=== PATIENT | male | born 1950 | race Caucasian/White ===

== ENCOUNTER 2019-08-19 09:08 | Emergency (ER) | payer MEDICARE, OTHER ==
[~2019-08-19] VITALS: Ht 172.7 cm; Wt 79.4 kg
[~2019-08-19 09:08] MED LIST: AMITRIPTYLINE H25 MG PO; GLIPIZIDE5 MG PO; KOMBIGLYZE XR1 EAC2 PO; LISINOPRIL5 MG PO; METOPROLOL TART50 MG PO; PLAVIX75 MG PO; PREVACID30 MG PO; SIMVASTATIN20 MG PO
--- OUTSIDE RECORDS SUMMARY | 2019-08-19 09:12 | XMS REPORT | Summary of Care ---
Author Author [facility] - Health Organization [facility] - Health Address Unknown Phone Unavailable Care Team Providers Care Pillowcase Turner Name Role Phone Kori Parker Mancini PCP Reason for Visit * Reason Comments Error Encounter Details Care Team Description Date Type Department Danny Herrera MD [address] [place] [id number] Bradley Krishnamurthy, [facility] [address] [place] [address] ERRONEOUS ENCOUNTER--DISREGARD (Primary Dx) 07/22/2019 Telemedicine [facility] Health Visit Endocrinology, [address] [address] Allergies Comments Active Allergy Reactions Severity Noted Date Codeine Unknown - See 05/07/2018 comments hyperkalemia Lisinopril Other - See 05/07/2018 comments Tramadol Rash 05/07/2018 documented as of this encounter (statuses as of 07/22/2019) Medications End Date Status Medication Sig Dispensed Refills Start Date Active amLODIPine 10 mg tablet amlodipine 10 0 mg tablet Active cloniDINE 0.1 mg tablet clonidine HCl 0 0.1 mg tablet Active clopidogrel bisulfate, use as 0 bulk, 100 % Powd directed Active levothyroxine 50 mcg levothyroxine 0 tablet 50 mcg tablet Active metFORMIN 1,000 mg tablet take 1 tablet 0 (1,000 mg) by oral route 2 times per day with morning and evening meals Active metoprolol succinate XL 0 50 mg 24 hr tablet Active simvastatin 20 mg tablet take 1 tablet 0 (20 mg) by oral route once daily in the evening Active terazosin 2 mg capsule terazosin 2 0 mg capsule Active DULoxetine 30 mg Take 1 60 capsule 4 capsuleIndications: Type capsule by 9 2 diabetes mellitus with mouth 2 (two) diabetic polyneuropathy, times daily. with long-term current use of insulin Active liraglutide (VICTOZA inject 1.2 mg 6 Syringe 1 2-TAMMY) 0.6 mg/0.1 mL (18 under the 9 mg/3 mL) skin daily. injectionIndications: Dx: E11.20 Type 2 diabetes mellitus with diabetic nephropathy, with long-term current use of insulin Active Insulin Asp Prt-Insulin inject 25 2 Box 3 Aspart (NOVOLOG MIX Units under 9 70-30) 100 unit/mL the skin 2 (70-30) (two) times injectionIndications: daily. Type 2 diabetes mellitus with diabetic nephropathy, with long-term current use of insulin Active BD ULTRAFINE III MINI PEN Use to check 400 Each 1 31 gauge x 3/16" Ndle blood glucose 0 up to four times daily. E11.42 documented as of this encounter (statuses as of 07/22/2019) Active Problems Problem Noted Date Type 2 diabetes mellitus with diabetic polyneuropathy, with long-term 03/29/2019 current use of insulin Acquired hypothyroidism 06/18/2018 Mixed hyperlipidemia 06/18/2018 Essential hypertension 06/18/2018 documented as of this encounter (statuses as of 07/22/2019) Resolved Problems Problem Noted Date Resolved Date Type 2 diabetes mellitus with diabetic nephropathy 06/18/2018 06/18/2018 Type 2 diabetes mellitus with diabetic nephropathy, with long-term current 06/18/2018 03/29/2019 use of insulin Chronic pansinusitis 06/18/2018 03/29/2019 documented as of this encounter (statuses as of 07/22/2019) Social History Date Tobacco Use Types Packs/Day Years Used Never Smoker Smokeless Tobacco: Never Used Drinks/Week oz/Week Comments Alcohol Use Yes Sex Assigned at Date Recorded Not on file Industry Job Start Date Occupation Not on file Not on file Not on file Travel End Travel History Travel Start No recent travel history available. documented as of this encounter Last Filed Vital Signs Not on filedocumented in this encounter Progress Notes * Bradley Krishnamurthy FNP - 07/22/2019 11:00 AM CDT Cc: No chief complaint on file. HPI Patient didn't pick call, multiple attempts made, left VM on appointment [facility] eduled for today Allergies Robb is allergic to codeine; lisinopril; and tramadol. Medications Outpatient Medications Prior to Visit Medication Sig Dispense Refill BD ULTRAFINE III MINI PEN 31 gauge x 3/16" Ndle Use to check blood glucose u p to four times daily. E11.42 400 Each 1 DULoxetine 30 mg capsule Take 1 capsule by mouth 2 (two) times daily. 60 cap amador 4 Insulin Asp Prt-Insulin Aspart (NOVOLOG MIX 70-30) 100 unit/mL (70-30) injec tion inject 25 Units under the skin 2 (two) times daily. 2 Box 3 liraglutide (VICTOZA 2-TAMMY) 0.6 mg/0.1 mL (18 mg/3 mL) injection inject 1.2 mg under the skin daily. Dx: E11.20 6 Syringe 1 amLODIPine 10 mg tablet amlodipine 10 mg tablet cloniDINE 0.1 mg tablet clonidine HCl 0.1 mg tablet clopidogrel bisulfate, bulk, 100 % Powd use as directed levothyroxine 50 mcg tablet levothyroxine 50 mcg tablet metFORMIN 1,000 mg tablet take 1 tablet (1,000 mg) by oral route 2 times per day with morning and evening meals metoprolol succinate XL 50 mg 24 hr tablet simvastatin 20 mg tablet take 1 tablet (20 mg) by oral route once daily in t he evening terazosin 2 mg capsule terazosin 2 mg capsule No facility-administered medications prior to visit. Histories No past medical history on file. No past surgical history on file. Social History Socioeconomic History Marital status: Spouse name: Not on file Number of children: Not on file Years of education: Not on file Highest education level: Not on file Occupational History Not on file Social Needs Financial resource strain: Not on file Food insecurity: Worry: Not on file Inability: Not on file Transportation needs: Medical: Not on file Non-medical: Not on file Tobacco Use Smoking status: Never Smoker Smokeless tobacco: Never Used Substance and Sexual Activity Alcohol use: Yes Drug use: No Sexual activity: Not on file Lifestyle Physical activity: Days per week: Not on file Minutes per session: Not on file Stress: Not on file Relationships Social connections: Talks on phone: Not on file Gets together: Not on file Attends confucianism service: Not on file Active member of club or organization: Not on file Attends meetings of clubs or organizations: Not on file Relationship status: Not on file Intimate partner violence: Fear of current or ex partner: Not on file Emotionally abused: Not on file Physically abused: Not on file Forced sexual activity: Not on file Other Topics Concern Not on file Social History Narrative Not on file No family history on file. Review of Systems Vital Signs There were no vitals taken for this visit. Physical Exam Assessment/Plan documented in this encounter Plan of Treatment Health Maintenance Due Date Last Done Comments HEPATITIS C (HCV) SCREEN 1950 CREATININE (SERUM) 1961 EYE EXAM 1961 URINE MICROALBUMIN 1961 DTaP,Tdap,and Td Vaccines 1962 (1 - Tdap) FOOT EXAM 1969 COLONOSCOPY 2001 Zoster Recombinant 2001 Vaccine (SHINGRIX) (1 of 2) Medicare Wellness Visit 01/22/2016 PNEUMOCOCCAL VACCINES 65+ 01/22/2016 (1 of 2 - PCV13) INFLUENZA VACCINE (#1) 2018 HgA1C 09/16/2019 03/18/2019 LDL-C 03/18/2020 03/18/2019 documented as of this encounter Results Not on filedocumented in this encounter Visit Diagnoses Diagnosis ERRONEOUS ENCOUNTER--DISREGARD - Primary documented in this encounter
--- OUTSIDE RECORDS SUMMARY | 2019-08-19 09:12 | XMS REPORT ---
Author Author [facility] Address Unknown Phone Unavailable Care Team Providers Care Computing Consultant Name Role Phone Unavailable Unavailable Problems This patient has no known problems. Allergies, Adverse Reactions, Alerts This patient has no known allergies or adverse reactions. Medications This patient has no known medications.
[2019-08-19] MEDS ORDERED: HYDROCODONE/APAP 7.5MG-325MG 1 EA TAB PO PRN (09:30)
[2019-08-19] MEDS ORDERED: KETOROLAC TROMETHAMINE 60 MG/2 ML VIAL IM ONE (09:30)
--- NOTE | 2019-08-19 10:45 | Diagnostic Imaging Report ---
EXAMINATION: SHOULDER LEFT COMPLETE INDICATION: Trauma COMPARISON: None FINDINGS: Internal and external rotation images of the left shoulder demonstrate no acute fracture or dislocation. Alignment is anatomic. The soft tissues appear unremarkable. Mild degenerative changes of the glenohumeral and acromioclavicular joints. Postoperative findings of prior CABG. The visualized portions of the left lung are clear. IMPRESSION: No acute osseous injury of the left shoulder. Mild degenerative changes as above. Signed by: Julio Oswald MD on 08/19/2019 10:42 AM
--- NOTE | 2019-08-19 10:48 | Diagnostic Imaging Report ---
EXAMINATION: KNEE LEFT THREE VIEWS INDICATION: Trauma COMPARISON: None FINDINGS: No acute fracture or dislocation. Alignment is anatomic. Mild tricompartmental degenerative changes. No substantial joint effusion. Mild atherosclerotic arterial calcifications. Surgical clips project over the medial posterior knee soft tissues. IMPRESSION: No acute osseous injury. Mild tricompartmental degenerative changes. Signed by: Julio Oswald MD on 08/19/2019 10:45 AM
[2019-08-19] MEDS ORDERED: ULTRAM 50MG50 MG PO (11:36)
== END 2019-08-19 12:21 | disposition home or self-care (01) ==
LOC: ER 09:08
DX: M25.512 Pain in left shoulder (principal); M25.562 Pain in left knee; W18.30XA Fall on same level, unspecified, initial encounter; Y92.488 Other paved roadways as the place of occurrence of the external cause; I10 Essential (primary) hypertension; E11.9 Type 2 diabetes mellitus without complications; I25.10 Atherosclerotic heart disease of native coronary artery without angina pectoris; E78.5 Hyperlipidemia, unspecified; Z95.1 Presence of aortocoronary bypass graft
CPT/HCPCS: 73030; 73562; 99282; J1885

== ENCOUNTER → 2019-09-11 | Outpatient (CLI) | payer MEDICARE ==
[~2019-09-11] MED LIST changes: +IOPAMIDOL 370 MG/ML 200 ML INFUS..BTL INJ ONE; +SODIUM CHLORIDE 0.9% 500ML 500 ML ONE; +SODIUM CHLORIDE 0.9% 50ML 50 ML ONE; +ULTRAM 50MG50 MG PO
[2019-09-11 10:03] LABS: CREATININE, SERUM 1.61 mg/dL (0.72-1.25)
--- NOTE | 2019-09-11 11:57 | Diagnostic Imaging Report ---
CT of the chest. Comparison: None Clinical History: Abnormal chest x-ray Technique: Helical CT scan of the chest was performed from just above the thoracic inlet through the adrenal glands. Intravenous contrast administration was utilized. Coronal and sagittal reconstructions were generated from the raw data. Multiple images were submitted for interpretation. This exam was performed according to our departmental dose-optimization program which includes automated exposure control, adjustment of the mA and/or kV according to patient size Discussion: Lung lopez: Minimal interstitial and airspace type opacity involving the left upper lobe in a subsegmental fashion. There is also suggestion of subsegmental atelectasis involving the lingular lobe. This could be the residua of a resolving infection or inflammation. Central airways: Unremarkable Pleural spaces and pleura: Unremarkable Pulmonary digna: Normal Mediastinum: Status post median sternotomy and CABG. Cardiac chambers and pericardium: Unremarkable Systemic great vessels: Minimal atherosclerosis of aorta and its major branches. Central pulmonary vessels: Unremarkable Thyroid: Unremarkable Lymph nodes: No lymphadenopathy Azygos vein: Unremarkable The esophagus: Normal. Thoracic duct: Unremarkable Osseous structures: Unremarkable Upper abdomen: Status post cholecystectomy. Mild prominence of the common bile duct at 9 mm but considered within normal limits for this age group. The left kidney is not visualized. Clinical correlation is requested. Body wall: 15 mm right axillary lymph node with a low density center. Probably benign. Breasts: Unremarkable Axilla: Unremarkable Lower neck: Minimal atherosclerotic calcification of the left common carotid artery. Impression: Minimal interstitial and groundglass disease involving the left upper lobe could represent resolving inflammation/infection. Signed by: Jatinder Abbott MD on 09/11/2019 11:54 AM
== END ==
LOC: CT 09:08
PROVIDERS: ATTEND Family Medicine
DX: R93.89 Abnormal findings on diagnostic imaging of other specified body structures (principal)
CPT/HCPCS: 36415; 71260; 82565; 84520; 87635; 96360; J7040; Q9967

== ENCOUNTER 2019-10-01 18:48 | Observation (INO) | payer MEDICARE ==
[~2019-10-01] VITALS: Ht 170.2 cm; Wt 79.4 kg
[~2019-10-01 18:48] MED LIST changes: -IOPAMIDOL 370 MG/ML 200 ML INFUS..BTL INJ ONE; -SODIUM CHLORIDE 0.9% 500ML 500 ML ONE; -SODIUM CHLORIDE 0.9% 50ML 50 ML ONE
[2019-10-01] MEDS ORDERED: PANTOPRAZOLE 40 MG 10ML VIAL IV STA (18:55)
--- OUTSIDE RECORDS SUMMARY | 2019-10-01 18:55 | XMS REPORT | Continuity of Care Document ---
Author Author [facility] t Organization [facility] Address [address] [place] [address] Phone Unavailable Care Team Providers Care Separator Tender Name Role Phone Addis YAO Attphys Unavailable ADDIE LAINEZ Attphys Unavailable Michael Hopson Attphys Problems This patient has no known problems. Allergies, Adverse Reactions, Alerts This patient has no known allergies or adverse reactions. Medications This patient has no known medications. Procedures This patient has no known procedures. Encounters Start Date/Time End Date/Time Encounter Type Admission Type [facility] Care Department Encounter ID Source 2019-07-22 07:45:17 2019-07-22 15:00:48 Telemedicine Visit Bradley Krishnamurthy [facility] Office Building [id number] Results Test Description Test Time Test Comments Results Result Comments Source CT CHEST W 2019-09-11 11:45:00 [facility] [address] [place] [address] Patient Name: MARILY RENTERIA MR #: [id number] : 1950 Age/Sex: 69/M Req #: [id number] Adm Physician: Ordered by: ELSY YAO DO Report #: [id number] Location: CT Room/Bed: Procedure: [id number] CT/CT CHEST W Exam Date: 09/11/19 Exam Time: 1045 REPORT STATUS: Signed CT of the chest. Comparison: None Clinical History: Abnormal chest x-ray Technique: Helical CT scan of the chest was performed from just above the thoracic inlet through the adrenal glands. Intravenous contrast administration was utilized. Coronal and sa gittal reconstructions were generated from the raw data. Multiple images were submitted for interpretation. This exam was performed according to our departmental dose-optimization program which includes automated exposure control, adjustment of the mA and/or kV according to patient size Discussion: Lung lopez: Minimal interstitial and airspace type opacity involving the left upper lobe in a subsegmental fashion. There is also suggestion of subsegmental atelectasis involving the lingular lobe. This could be the residua of a resolving infection or inflammation. Central airways: Unremarkable Pleural spaces and pleura: Unremarkable Pulmonary digna: Normal Mediastinum: Status post median sternotomy and CABG. Cardiac chambers and pericardium: Unremarkable Systemic great vessels: Minimal atherosclerosis of aorta and its major branches. Central pulmonary vessels: Unremarkable Thyroid: Unremarkable Lymph nodes: No lymphadenopathy Azygos vein: Un remarkable The esophagus: Normal. Thoracic duct: Unremarkable Osseous structures: Unremarkable Upper abdomen: Status post cholecystectomy. Mild prominence of the common bile duct at 9 mm but considered within normal limits for this age group. The left kidney is not visualized. Clinical correlation is requested. Body wall: 15 mm right axillary lymph node with a low density center. Probably benign. Breasts: Unremarkable Axilla: Unremarkable Lower neck: Minimal atherosclerotic calcification of the left common carotid artery. Impression: Minimal interstitial and groundglass disease involving the left upper lobe could represent resolving inflammation/infection. Signed by: Mary Ann Crook MD on 09/11/2019 11:54 AM Dictated By: MARY ANN CROOK MD [id number] Transcribed By: EARLINE on 09/11/19 [id number] COPY TO: ELSY YAO DO KNEE LEFT THREE VIEWS 2019-08-19 10:44:00 [facility] [address] [address] Patient Name: MARILY RENTERIA MR #: [id number] : 1950 Age/Sex: 69/M Req #: [id number] Adm Physician: Ordered by: ADDIE LAINEZ DO Report #: [id number] Location: ER Room/Bed: Procedure: [id number] DX/KNEE LEFT THREE VIEWS Exam Date: 08/19/19 Exam Time: 1004 REPORT STATUS: Signed EXAMINATION: KNEE LEFT THREE VIEWS INDICATION: Trauma COMPARISON: None FINDINGS: No acute fracture or dislocation. Alignment is anatomic. Mild tricompartmental degenerative changes. No substantial joint effusion. Mild atherosclerotic arterial calcifications. Surgical clips project over the medial posterior knee soft tissues. IMPRESSION: No acute osseous injury. Mild tricompartmental degenerative changes. Signed by: Florian Quiroz MD on 08/19/2019 10:45 AM Dictated By: FLORIAN QUIROZ MD 1045 Transcribed By: EARLINE on 08/19/19 1045 COPY TO: ADDIE LAINEZ DO SHOULDER LEFT COMPLETE 2019-08-19 10:41:[address] [address] Patient Name: MARILY RENTERIA MR #: [id number] : 1950 Age/Sex: 69/M Req #: [id number] Adm Physician: Ordered by: ADDIE LAINEZ DO Report #: [id number] Location: ER Room/Bed: Procedure: [id number] DX/SHOULDER LEFT COMPLETE Exam Date: 08/19/19 Exam Time: 1004 REPORT STATUS: Signed EXAMINATION: SHOULDER LEFT COMPLETE INDICATION: Trauma COMPARISON: None FINDINGS: Internal and external rotation images of the left shoulder demonstrate no acute fracture or dislocation. Alignment is anatomic. The soft tissues appear unremarkable. Mild degenerative changes of the glenohumeral and acromioclavicular joints. Postoperative findings of prior CABG. The visualized portions of the left lung are clear. IMPRESSION: No acute osseous injury of the left shoulder. Mild degenerative changes as above. Signed by: Florian Quiroz MD on 08/19/2019 10:42 AM Dictated By: FLORIAN QUIROZ MD Electro nically Signed By: FLORIAN QUIROZ MD on 08/19/19 1042 Transcribed By: EARLINE on 08/19/191041 COPY TO: ADDIE LAINEZ DO
[2019-10-01] MEDS ORDERED: ASPIRIN 81 MG CHEW TAB PO ONE ×2 (19:00→20:00)
--- NOTE | 2019-10-01 19:06 | Emergency Department Note ---
History of Present Illnes History of Present Illness Chief Complaint: Chest Pain History of Present Illness This is a 69 year old male 3 day h/o of substernal CP non-radiating. ( +) SOB and N. Reports BRAUN. previous h/o of CABG and PCI . Historian: Patient Arrival Mode: Car Onset (how long ago): week(s) (3) Radiation: Reports non-radiation Severity: moderate Onset quality: gradual Duration (how long): day(s) (3) Timing of current episode: constant Progression: worsening Chronicity: new Relieving factors: none Exacerbating factors: none Associated symptoms: Reports chest pain, Reports nausea/vomiting, Reports shortness of breath Treatments prior to arrival: none Past Medical/Family History Physician Review I have reviewed the patient's past medical and family history. Any updates have been documented here. Past Medical History Recent Fever: No Clinical Suspicion of Infectio: No New/Unexplained Change in Ment: No Past Medical History: Hypertension, Diabetes, CAD, Hyperlipedemia Past Surgical History: CABG Other Surgery: left knee meniscus Social History Smoking Cessation: Never Smoker Alcohol Use: None Any Illegal Drug Use: No Review of Systems Review of Systems Constitutional: Reports no symptoms EENTM: Reports no symptoms Cardiovascular: Reports chest pain, Reports edema Respiratory: Reports dyspnea Gastrointestinal: Reports nausea Genitourinary: Reports no symptoms Musculoskeletal: Reports no symptoms Integumentary: Reports no symptoms Neurological: Reports no symptoms Psychological: Reports no symptoms Endocrine: Reports no symptoms Hematological/Lymphatic: Reports no symptoms Review of other systems All other systems reviewed and negative. Physical Exam Related Data Allergies: Coded Allergies: codeine (Verified Allergy, Unknown, 11/14/12) Triage Vital Signs Vital Signs Date Time Temp Pulse Resp B/P (MAP) Pulse Ox O2 Delivery O2 Flow Rate FiO2 10/01/19 18:51 98.4 91 18 189/99 98 Vital signs reviewed: Yes Physical Exam CONSTITUTIONAL Constitutional: Reports well-developed, Reports well-nourished HENT HENT: Reports normocephalic, Reports atraumatic, Reports oropharynx clear/moist, Reports nose normal HENT L/R: Reports left ext ear normal, Reports right ext ear normal EYES Eyes: Reports PERRL, Reports conjunctivae normal NECK Neck: Reports ROM normal PULMONARY Pulmonary: Reports effort normal, Reports breath sounds normal CARDIOVASCULAR Cardiovascular: Reports regular rhythm, Reports heart sounds normal, Reports capillary refill normal, Reports normal rate GASTROINTESTINAL Abdominal: Reports soft, Reports nontender, Reports bowel sounds normal GENITOURINARY Genitourinary: Reports exam deferred SKIN Skin: Reports warm, Reports dry MUSCULOSKELETAL Musculoskeletal: Reports edema (1+ pedal b/l ) NEUROLOGICAL Neurological: Reports alert, Reports oriented x 3, Reports no gross motor or sensory deficits PSYCHOLOGICAL Psychological: Reports mood/affect normal, Reports judgement normal Results Laboratory Laboratory Laboratory Tests Test 10/01/19 18:56 Lab results reviewed: Yes Laboratory comments Laboratory Tests Test 10/01/19 18:56 White Blood Count 4.37 x10e3/uL (4.8-10.8) Red Blood Count 4.14 x10e6/uL (4.3-5.7) Hemoglobin 13.0 g/dL (14.0-18.0) Hematocrit 38.0 % (38.2-49.6) Mean Corpuscular Volume 91.8 fL (81-99) Mean Corpuscular Hemoglobin 31.4 pg (28-32) Mean Corpuscular Hemoglobin Concent 34.2 g/dL (31-35) Red Cell Distribution Width 12.4 % (11.7-14.4) Platelet Count 146 x10e3/uL (140-360) Neutrophils (%) (Auto) 46.3 % (38.7-80.0) Lymphocytes (%) (Auto) 36.6 % (18.0-39.1) Monocytes (%) (Auto) 11.9 % (4.4-11.3) Eosinophils (%) (Auto) 4.1 % (0.0-6.0) Basophils (%) (Auto) 0.9 % (0.0-1.0) Neutrophils # (Auto) 2.0 (2.1-6.9) Lymphocytes # (Auto) 1.6 (1.0-3.2) Monocytes # (Auto) 0.5 (0.2-0.8) Eosinophils # (Auto) 0.2 (0.0-0.4) Basophils # (Auto) 0.0 (0.0-0.1) Absolute Immature Granulocyte (auto 0.01 x10e3/uL (0-0.1) Prothrombin Time 12.5 seconds (11.9-14.5) Prothromb Time International Ratio 0.88 Activated Partial Thromboplast Time 29.7 seconds (23.8-35.5) Sodium Level 139 mmol/L (136-145) Potassium Level 5.3 mmol/L (3.5-5.1) Chloride Level 105 mmol/L (98-107) Carbon Dioxide Level 22 mmol/L (22-29) Anion Gap 17.3 mmol/L (8-16) Blood Urea Nitrogen 26 mg/dL (7-26) Creatinine 1.88 mg/dL (0.72-1.25) Estimat Glomerular Filtration Rate 36 ML/MIN (60-) BUN/Creatinine Ratio 14 (6-25) Glucose Level 181 mg/dL (74-118) Calcium Level 9.1 mg/dL (8.4-10.2) Total Bilirubin 0.5 mg/dL (0.2-1.2) Aspartate Amino Transf (AST/SGOT) 169 IU/L (5-34) Alanine Aminotransferase (ALT/SGPT) 125 IU/L (0-55) Alkaline Phosphatase 92 IU/L (40-150) Creatine Kinase 132 IU/L (30-200) Creatine Kinase MB 9.50 ng/mL (0-5.0) Troponin I 0.027 ng/mL (0-0.300) B-Type Natriuretic Peptide 47.0 pg/mL (0-100) Total Protein 7.4 g/dL (6.5-8.1) Albumin 3.0 g/dL (3.5-5.0) Globulin 4.4 g/dL (2.3-3.5) Albumin/Globulin Ratio 0.7 (0.8-2.0) Lipase 39 U/L (8-78) Imaging Imaging results reviewed: Yes Impressions [place] [address] Patient Name: MARILY RENTERIA MR #: [id number] : 1950 Age/Sex: 69/M Req #: [id number] Adm Physician: Ordered by: SURINDER QUIROS MD Report #: [id number] Location: ER Room/Bed: Procedure: [id number] DX/CHEST SINGLE (PORTABLE) Exam Date: Exam Time: REPORT STATUS: Signed EXAMINATION: CHEST SINGLE (PORTABLE) INDICATION: ^CP COMPARISON: CT chest 09/11/2019 FINDINGS: AP view TUBES and LINES: None. LUNGS: Lungs are well inflated. Mild central pulmonary vascular congestion. Scarring in the lingula is unchanged. PLEURA: No pleural effusion or pneumothorax. HEART AND MEDIASTINUM: Mild enlargement of the cardiac silhouette. BONES AND SOFT TISSUES: Intact median sternotomy wires. Soft tissues are unremarkable. UPPER ABDOMEN: No free air under the diaphragm. IMPRESSION: Mild central pulmonary vascular congestion. Signed by: Dr. Valentino Trevizo M.D. on 10/01/2019 8:17 PM Dictated By: VALENTINO TREVIZO MD 16 Transcribed By: EARLINE on 10/01/192016 COPY TO: SURINDER QUIROS MD~ Procedures 12 Lead ECG Interpretation ECG Interpretation : ECG: ECG 1 Sports Centre Manager: Interpreted by ED physician Date: Oct 01, 2019 Prior ECG tracings: reviewed Rhythm: sinus rhythm Ectopy: unifocal PVC's Rate: normal QRS axis: normal ST segments normal: Yes T waves normal: Yes Assessment & Plan Medical Decision Making MDM Patient with prior h/o of CAD. labs and XR reviewed. Patient with elevated Creatinine and liver enyzmes. Case d/w with Dr Desiree Ritter with orders to give lovenox SC. Plan to admit to the hospital. Reassessment Reassessment time: 20:[address] Ankit Ritter paged. Patient to be admitted Assessment & Plan Final Impression: (1) Chest pain (2) Renal insufficiency (3) Hyperkalemia (4) Transaminitis Depart Disposition: ADMITTED Last Vital Signs Date Time Temp Pulse Resp B/P (MAP) Pulse Ox O2 Delivery O2 Flow Rate FiO2 10/01/19 18:51 98.4 91 18 189/99 98 Home Meds Active Scripts Tramadol Hcl* (ULTRAM 50MG*) 50 Mg Tab, 50 MG PO Q6HR PRN for Mild Pain (1-3) or Fever>100.8, #14 TAB Prov:ADDIE LAINEZ DO 08/19/19 Reported Medications Insuln Asp Prt/Insulin Aspart (NOVOLOG MIX 70-30 FLEXPEN SYRN) 100 Unit/1 Ml Insuln.pen, 25 UNIT SC BID, SYR 10/02/19 Atorvastatin Calcium (ATORVASTATIN CALCIUM) 20 Mg Tablet, 20 MG PO DAILY, #30 TAB 10/02/19 Zolpidem Tartrate (ZOLPIDEM TARTRATE) 5 Mg Tablet, 5 MG PO HS PRN for INSOMNIA, #30 TAB 10/02/19 Clonidine Hcl (CLONIDINE HCL) 0.1 Mg Tablet, 1 TAB PO HS, #60 TAB 10/02/19 Terazosin Hcl (TERAZOSIN HCL) 1 Mg Capsule, 2 MG PO HS, #30 CAP 10/02/19 Metoprolol Succinate (METOPROLOL SUCCINATE) 50 Mg Tab.er.24h, 50 MG PO DAILY, MG 10/02/19 Amlodipine Besylate (AMLODIPINE BESYLATE) 10 Mg Tablet, 10 MG PO DAILY, #30 TAB 10/02/19 Liraglutide (VICTOZA 2-TAMMY) 0.6 Mg/0.1 Ml Pen.injctr, 1.2 MG DAILY 10/02/19 Levothyroxine Sodium (LEVOTHYROXINE SODIUM) 50 Mcg Tablet, 100 MCG PO DAILY, #30 TAB 10/02/19 Metformin Hcl (METFORMIN HCL ER) 500 Mg Tab.er.24, 500 MG PO BID, #60 TAB 10/02/19 Amitriptyline Hcl (AMITRIPTYLINE HCL) 25 Mg Tablet, 25 MG PO HS, #30 TAB 10/02/19 Omeprazole (OMEPRAZOLE) 40 Mg Capsule.dr, 20 MG PO DAILY 10/02/19 Amitriptyline Hcl (AMITRIPTYLINE HCL) 25 Mg Tablet, MG PO DAILY 11/14/12 Saxagliptin Hcl/Metformin Hcl (KOMBIGLYZE XR 2.5-1,000 MG TAB) 1 Each Tbmp.24hr, MG PO DAILY 11/14/12 Lisinopril (LISINOPRIL) 5 Mg Tablet, MG PO DAILY 11/14/12 Simvastatin (SIMVASTATIN) 20 Mg Tablet, MG PO DAILY 11/14/12 Lansoprazole (PREVACID) 30 Mg Capsule.dr, MG PO DAILY 11/14/12 Clopidogrel Bisulfate* (PLAVIX) 75 Mg Tablet, 75 MG PO DAILY 11/14/12 Glipizide (GLIPIZIDE) 5 Mg Tablet, MG PO DAILY 11/14/12 Metoprolol Tartrate (METOPROLOL TARTRATE) 50 Mg Tablet, MG PO BID 11/14/12 Medications in the ED Pantoprazole Sodium 40 mg ONCE STAT IV ; Start 10/01/19 at 18:55; Stop 10/01/19 at 19:03; Status DC Aspirin 81 mg NOW ONCE PO ; Start 10/01/19 at 19:00; Stop 10/01/19 at 19:02; Status DC CHANDRAKANT BRUNO DO Oct 01, 2019 19:06
[2019-10-01 19:08] LABS: BASOPHILS % 0.9 % (0.0-1.0); EOSINOPHILS # (AUTO) 0.2 (0.0-0.4); EOSINOPHILS % 4.1 % (0.0-6.0); LYMPHOCYTES # (AUTO) 1.6 (1.0-3.2); LYMPHOCYTES % 36.6 % (18.0-39.1); MEAN CORPUSCULAR HEMOGLOBIN 31.4 pg (28-32); MEAN CORPUSCULAR HGB CONC 34.2 g/dL (31-35); MEAN CORPUSCULAR VOLUME 91.8 fL (81-99); MONOCYTES # (AUTO) 0.5 (0.2-0.8); MONOCYTES % 11.9 % (4.4-11.3); NEUTROPHILS % 46.3 % (38.7-80.0); PLATELET COUNT 146 x10e3/uL (140-360); RED BLOOD COUNT 4.14 x10e6/uL (4.3-5.7); RED CELL DISTRIBUTION WIDTH 12.4 % (11.7-14.4)
[2019-10-01 19:27] LABS: INR 0.88; PROTHROMBIN TIME 12.5 seconds (11.9-14.5)
[2019-10-01 19:28] LABS: PARTIAL THROMBOPLASTIN TIME 29.7 seconds (23.8-35.5)
[2019-10-01 19:37] LABS: ALBUMIN/GLOBULIN RATIO 0.7 (0.8-2.0); ANION GAP 17.3 mmol/L (8-16); CALCIUM 9.1 mg/dL (8.4-10.2); CREATININE, SERUM 1.88 mg/dL (0.72-1.25); POTASSIUM 5.3 mmol/L (3.5-5.1)
[2019-10-01 19:44] LABS: CREATINE KINASE MB 9.5 ng/mL (0-5.0)
[2019-10-01] MEDS ORDERED: MORPHINE SULFATE INJ 4 MG/ML INJ 1ML IV STA ×2 (19:56→20:06)
[2019-10-01] MEDS ORDERED: ONDANSETRON HCL INJ 2MG/ML 2ML 2 MG/ML VIAL IV PRN (20:00)
[2019-10-01] MEDS ORDERED: SODIUM CHLORIDE FLUSH 10 ML SYR INJ PRN (20:00)
[2019-10-01] MEDS ORDERED: DEXTROSE 50% SYRINGE 50 ML IV PRN (20:00)
[2019-10-01] MEDS ORDERED: HYDRALAZINE HCL 20 MG/ML VIAL IV STA (20:08)
[2019-10-01] MEDS ORDERED: HYDRALAZINE HCL 20 MG/ML VIAL IV PRN (20:15)
--- NOTE | 2019-10-01 20:21 | Diagnostic Imaging Report ---
EXAMINATION: CHEST SINGLE (PORTABLE) INDICATION: ^CP COMPARISON: CT chest 09/11/2019 FINDINGS: AP view TUBES and LINES: None. LUNGS: Lungs are well inflated. Mild central pulmonary vascular congestion. Scarring in the lingula is unchanged. PLEURA: No pleural effusion or pneumothorax. HEART AND MEDIASTINUM: Mild enlargement of the cardiac silhouette. BONES AND SOFT TISSUES: Intact median sternotomy wires. Soft tissues are unremarkable. UPPER ABDOMEN: No free air under the diaphragm. IMPRESSION: Mild central pulmonary vascular congestion. Signed by: Dr. Asuncion Muro M.D. on 10/01/2019 8:17 PM
[2019-10-01] MEDS ORDERED: METOPROLOL TARTRATE INJ 1 MG/ML VIAL IV ONE (21:00)
--- OUTSIDE RECORDS SUMMARY | 2019-10-01 21:03 | XMS REPORT | Continuity of Care Document ---
Author Author [facility] t Organization [facility] Address [address] [place] [address] Phone Unavailable Care Team Providers Care [employer] Assembler Name Role Phone CHANDRAKANT BRUNO Attphys Unavailable Addis YAO Attphys Unavailable ADDIE LAINEZ Attphys Unavailable Michael Hopson Attphys Irene CAR Admphys Unavailable Problems This patient has no known problems. Allergies, Adverse Reactions, Alerts This patient has no known allergies or adverse reactions. Medications This patient has no known medications. Procedures This patient has no known procedures. Encounters Start Date/Time End Date/Time Encounter Type [facility] Encounter ID Source 2019-07-22 07:45:17 2019-07-22 15:00:48 Telemedicine Visit Bradley Krishnamurthy [facility] Office Building [id number] Results Test Description Test Time Test Comments Results Result Comments Source CHEST SINGLE (PORTABLE) 2019-10-01 20:16:00 [facility] [address] [place], [place] [address] Patient Name: MARILY RENTERIA MR #: [id number] : 1950 Age/Sex: 69/M Req #: [id number] Adm Physician: Ordered by: SURINDER QUIROS MD Report #: [id number] Location: ER Room/Bed: Procedure: DX/CHEST SINGLE (PORTABLE) Exam Date: Exam Time: REPORT STATUS: Signed EXAMINATION: CHEST SINGLE (PORTABLE) INDICATION: CP COMPARISON: CT chest 09/11/2019 FINDINGS: AP view TUBES and LINES: None. LUNGS: Lungs are well inflated. Mild central pulmonary vascular congestion. Scarring in the lingula is unchanged. PLEURA: No pleural effusion or pneumothorax. HEART AND MEDIASTINUM: Mild enlargement of the cardiac silhouette. BONES AND SOFT TISSUES: Intact median sternotomy wires. Soft tissues are unremarkable. UPPER ABDOMEN: No free air under the diaphragm. IMPRESSION: Mild central pulmonary vascular congestion. Signed by: Dr. Valentino Trevizo M.D. on 10/01/2019 8:17 PM Dictated By: VALENTINO TREVIZO MD 16 Transcribed By: EARLINE on 10/01/192016 COPY TO: SURINDER QUIROS MD CT CHEST W 2019-09-11 11:45:00 [place] [address] Patient Name: MARILY RENTERIA MR #: [id number] : 1950 Age/Sex: 69/M Req #: [id number] Adm Physician: Ordered by: ELSY YAO DO Report #: [id number] Location: CT Room/Bed: Procedure: CT/CT CHEST W Exam Date: 09/11/19 Exam [...] AM Dictated By: MARY ANN CROOK MD 1154 Transcribed By: EARLINE on 09/11/19 1154 COPY TO: ELSY YAO LEFT THREE VIEWS 2019-08-19 10:44:00 [place] [address] Patient Name: MARILY RENTERIA MR #: [id number] : 1950 Age/Sex: 69/M Req #: [id number] Adm Physician: Ordered by: ADDIE LAINEZ DO Report #: [id number] Location: ER Room/Bed: Procedure: [id number] DX/KNEE LEFT THREE VIEWS Exam Date: 08/19/19 [...] Mild tricompartmental degenerative changes. Signed by: Florian Oswald MD on 08/19/2019 10:45 AM Dictated By: FLORIAN OSWALD MD 1045 Transcribed By: EARLINE on 08/19/19 1045 COPY TO: ADDIE LAINEZ DO SHOULDER LEFT COMPLETE 2019-08-19 10:41:00 [place] [address] Patient Name: MARILY RENTERIA MR #: [id number] : 1950 Age/Sex: 69/M Req #: [id number] Adm Physician: Ordered by: ADDIE LAINEZ DO Report #: [id number] Location: ER Room/Bed: Procedure: [id number] DX/SHOULDER LEFT COMPLETE Exam Date: 08/19/19 Exam [...] degenerative changes as above. Signed by: Florian Oswald MD on 08/19/2019 10:42 AM Dictated By: FLORIAN OSWALD MD Electro nically Signed By: FLORIAN OSWALD MD on 08/19/19 1042 Transcribed By: EARLINE on 08/19/19 104 COPY TO: ADDIE LAINEZ DO
[2019-10-01] MEDS: ENOXAPARIN INJ 80 MG/0.8 ML SYR SC SCH (21:24)
[2019-10-01] MEDS ORDERED: NITROGLYCERIN 2% OINT 1 GM PKT TOP STA (21:53)
[2019-10-02] VITALS (10 sets, daily range): BP systolic 139–162; BP diastolic 71–94
--- NOTE | 2019-10-02 01:05 | NUR ---
PATIENT ARRIVED TO THE UNIT VIA STRETCHER FROM ER WITH BELONGINGS. RECEIVED REPORT FROM RUBEN ER NURSE. PATIENT IS A&OX3 AND AMBULATES. PATIENT IN NO PAIN OR DISTRESS. CALL LIGHT WITHIN REACH.
[2019-10-02] MEDS: INSULIN REGULAR, HUMAN 100 UNIT/1 ML 3ML VIAL SQ SCH ×5 (01:21→21:42)
[2019-10-02 02:53] LABS: CREATINE KINASE MB 8.8 ng/mL (0-5.0)
[2019-10-02] MEDS ORDERED: METOPROLOL SUCC50 MG PO (03:43)
[2019-10-02] MEDS ORDERED: METFORMIN HCL500 M2 PO (03:43)
[2019-10-02] MEDS ORDERED: AMLODIPINE BESY10 MG PO (03:43)
[2019-10-02] MEDS ORDERED: LEVOTHYROXINE50 MCG PO (03:43)
[2019-10-02] MEDS ORDERED: NOVOLOG MI100 UNIT/1 SC (03:43)
[2019-10-02] MEDS ORDERED: ZOLPIDEM TARTRAT5 MG PO (03:43)
[2019-10-02] MEDS ORDERED: TERAZOSIN HCL1 MG PO (03:43)
[2019-10-02] MEDS ORDERED: ATORVASTATIN CA20 MG PO (03:43)
[2019-10-02] MEDS ORDERED: VICTOZA 2-0.6 MG/0.1 (03:43)
[2019-10-02] MEDS ORDERED: OMEPRAZOLE40 MG PO (03:43)
[2019-10-02] MEDS ORDERED: AMITRIPTYLINE H25 MG PO (03:43)
[2019-10-02] MEDS ORDERED: CLONIDINE HCL0.1 MG PO (03:43)
[2019-10-02] MEDS: MORPHINE SULFATE INJ 4 MG/ML INJ 1ML IV PRN ×3 (04:45→18:10)
[2019-10-02 05:52] LABS: BASOPHILS % 0.8 % (0.0-1.0); EOSINOPHILS # (AUTO) 0.1 (0.0-0.4); EOSINOPHILS % 3.7 % (0.0-6.0); HEMATOCRIT 34.2 % (38.2-49.6); HEMOGLOBIN 11.8 g/dL (14.0-18.0); LYMPHOCYTES # (AUTO) 1.3 (1.0-3.2); MEAN CORPUSCULAR HGB CONC 34.5 g/dL (31-35); MEAN CORPUSCULAR VOLUME 92.7 fL (81-99); MONOCYTES # (AUTO) 0.5 (0.2-0.8); MONOCYTES % 12.5 % (4.4-11.3); NEUTROPHILS # (AUTO) 1.8 (2.1-6.9); NEUTROPHILS % 47.5 % (38.7-80.0); PLATELET COUNT 115 x10e3/uL (140-360); RED BLOOD COUNT 3.69 x10e6/uL (4.3-5.7); RED CELL DISTRIBUTION WIDTH 12.4 % (11.7-14.4)
[2019-10-02 06:32] LABS: ALBUMIN 2.6 g/dL (3.5-5.0); ALBUMIN/GLOBULIN RATIO 0.7 (0.8-2.0); ANION GAP 14.1 mmol/L (8-16); CALCIUM 8.5 mg/dL (8.4-10.2); CREATININE, SERUM 1.58 mg/dL (0.72-1.25); POTASSIUM 4.1 mmol/L (3.5-5.1)
--- NOTE | 2019-10-02 07:03 | NUR ---
GAVE BEDSIDE SHIFT REPORT TO ONCOMING NURSE. CALL LIGHT WITHIN REACH. PATIENT IN BED. HOURLY ROUNDING PERFORMED.
[2019-10-02 07:04] LABS: CREATINE KINASE MB 3.7 ng/mL (0-5.0)
[2019-10-02] MEDS: ENOXAPARIN INJ 80 MG/0.8 ML SYR SC SCH ×2 (08:44→21:41)
--- NOTE | 2019-10-02 13:54 | Consultation ---
DATE OF CONSULTATION: Cardiology Consultation Mr. Virgen is a pleasant 69-year-old diabetic, known to us from past evaluations. CHIEF COMPLAINT: He presented to the emergency room overnight with a complaint of chest discomfort. HISTORY OF PRESENT ILLNESS: The patient is a vague historian and reports that he "has chest pain all the time." He does not relate it to exertion. He has been painting his house lately. He has nitroglycerin, but does not use it, reporting it is years old. PAST MEDICAL HISTORY: Complex with previous coronary artery bypass graft surgery in 2008, after previous coronary stenting and brachytherapy. Longstanding diabetes and mild renal insufficiency. MEDICATIONS: Recent medications have been glipizide 10 mg two tablets daily, simvastatin 20 mg daily, aspirin 325 mg daily, metformin 500 mg two tablets twice a day, amlodipine 10 mg daily, Victoza, clonidine 0.1 mg daily, levothyroxine 0.5 mg daily, amitriptyline, losartan was stopped. PERSONAL AND SOCIAL HISTORY: He does not smoke. FAMILY HISTORY: Father diabetic. Mother had congestive failure. Brother had myocardial infarction. PAST SURGICAL HISTORY: The patient had left knee surgery in 2017, remote appendectomy. PHYSICAL EXAMINATION: GENERAL: At this time shows a pleasant, alert man, who is alert and oriented. VITAL SIGNS: Blood pressure 150/80. HEAD, EYES, EARS, NOSE, AND THROAT: Unremarkable. NECK: There is healed right carotid incision. There are no bruits. THORAX: There is healed midline sternotomy. Heart sounds S1 and S2 are equal. No murmurs. LUNGS: Clear. ABDOMEN: Protuberant. Normal bowel sounds. EXTREMITIES: Show trace edema on the left leg. LABORATORY DATA: His initial creatinine is 1.88 with repeat being 1.58. Troponins are normal x3. EKG does not show any acute changes. ASSESSMENT: 1. Atypical chest discomfort, etiology not clear. 2. Known coronary artery disease with previous bypass graft surgery. 3. History of carotid disease and carotid endarterectomy. 4. Type 2 adult onset diabetes. PLAN: We will monitor. Review echo and carotid Doppler scan, and plan stress Cardiolite for him to reassess his chest discomforts. Further management based on clinical course. Thank you for asking me to see him in consultation. Ankit Ritter, MD JM/ZAHRA /[id number] cc: Parker Sheikh DO
[2019-10-02] MEDS: METFORMIN HCL 500 MG TAB CR PO SCH (17:07)
--- NOTE | 2019-10-02 19:03 | NUR ---
RECEIVED REPORT FROM PREVIOUS NURSE. CALL LIGHT WITHIN REACH. PATIENT IN BED ASLEEP
[2019-10-02] MEDS ORDERED: CLONIDINE HCL 0.1 MG TAB PO SCH (21:00)
[2019-10-02] MEDS ORDERED: ZOLPIDEM TARTRATE 5 MG TAB PO PRN (21:00)
[2019-10-02] MEDS ORDERED: TERAZOSIN HCL 1 MG CAP PO SCH (21:00)
[2019-10-02] MEDS ORDERED: AMITRIPTYLINE HCL 25 MG TAB PO SCH (21:00)
[2019-10-03] VITALS: BP 138/77
[2019-10-03 04:00] VITALS: BP 140/75
[2019-10-03] MEDS ORDERED: LEVOTHYROXINE SODIUM 100 MCG TAB PO SCH (06:00)
--- NOTE | 2019-10-03 07:13 | NUR ---
GAVE BEDSIDE SHIFT REPORT TO ONCOMING NURSE. CALL LIGHT WITHIN REACH. PATIENT IN BED. HOURLY ROUNDING PERFORMED.
[2019-10-03] MEDS ORDERED: PANTOPRAZOLE SOD 40 MG TABEC PO SCH ×2 (07:30→09:00)
[2019-10-03] MEDS: INSULIN REGULAR, HUMAN 100 UNIT/1 ML 3ML VIAL SQ SCH ×3 (07:30→17:35)
[2019-10-03 07:47] VITALS: BP 162/82
[2019-10-03] MEDS ORDERED: AMLODIPINE BESYLATE 10 MG TAB PO SCH (09:00)
[2019-10-03] MEDS ORDERED: METOPROLOL SUCCINATE 50 MG TAB XL PO SCH (09:00)
[2019-10-03] MEDS ORDERED: ATORVASTATIN 20 MG TAB PO SCH (09:00)
[2019-10-03] MEDS ORDERED: LEVOTHYROXINE SODIUM 50 MCG TAB PO SCH (09:00)
[2019-10-03] MEDS ORDERED: CLOPIDOGREL BISULFATE 75 MG TAB PO SCH (09:00)
--- NOTE | 2019-10-03 09:20 | NUR ---
Pt taken to nuclear medicine department for stress test at this time. Pt is aox3 and able to verbalize needs. Denies any pain at this time. 0 s/s of acute distress noted at time of transfer.
[2019-10-03 09:27] VITALS: BP 162/82
[2019-10-03] MEDS: METFORMIN HCL 500 MG TAB CR PO SCH ×2 (12:28→17:33)
[2019-10-03] MEDS: ENOXAPARIN INJ 80 MG/0.8 ML SYR SC SCH (12:29)
[2019-10-03 13:11] VITALS: BP 174/85
[2019-10-03 16:07] VITALS: BP 152/85
--- NOTE | 2019-10-03 17:56 | NUR ---
Pt discharged home at this time. He was cleared by Dr. Ritter after stress test results. Pt and family verbalized understanding of all discharge instructions. Denies any pain at time of discharge.
--- NOTE | 2019-10-03 21:45 | Operative Report ---
DATE OF PROCEDURE: 10/03/2019 SURGEON: Ankit Ritter MD STUDY: Stress Myoview. FINDINGS: The patient had resting perfusion images after injection of 11 mCi of technetium-99m Myoview. Later, the patient exercised on Scott protocol for a total of 5 minutes [address] changes. He reports that he did have "a little chest discomfort in stage II, predominantly shortness of breath." At maximum exercise, he was given 33 mCi of technetium-99m Myoview. Perfusion images were taken by rotational tomographies. Comparison of resting and Lexiscan stress images show no evidence of any perfusion defect. Additionally, gated wall motion images were obtained. The calculated ejection fraction normal 63% without regional wall motion abnormalities. FINAL IMPRESSION: 1. Normal stress Myoview for perfusion. 2. Normal left ventricular function with calculated ejection fraction 63%. MD JAMEY Cagle/GUZMANL /[id number] cc: Parker Sheikh DO
== END 2019-10-03 17:56 | disposition home or self-care (01) ==
LOC: ER 18:52 → ERHOLD 19:56 → MED/SURG 10-02 01:04
DX: R07.9 Chest pain, unspecified (principal); I25.10 Atherosclerotic heart disease of native coronary artery without angina pectoris; Z95.1 Presence of aortocoronary bypass graft; Z95.5 Presence of coronary angioplasty implant and graft; E11.22 Type 2 diabetes mellitus with diabetic chronic kidney disease; I12.9 Hypertensive chronic kidney disease with stage 1 through stage 4 chronic kidney disease, or unspecified chronic kidney disease; N18.9 Chronic kidney disease, unspecified; R74.0 Nonspecific elevation of levels of transaminase and lactic acid dehydrogenase [LDH]; E87.5 Hyperkalemia
CPT/HCPCS: 36415 ×3; 71045; 78452; 80053 ×2; 82550 ×2; 82553 ×2; 82948 ×2; 83690; 83880; 84484 ×2; 85025 ×2; 85610; 85730; 87635; 93005; 93017; 93306; 93880; 96374; 99284; A9502; C9113; G0378 ×3; J0360 ×2; J1650 ×3; J1817; J2270 ×2; J2405; S0164

== ENCOUNTER 2020-02-29 10:29 | Inpatient (IN) | payer MEDICARE ==
[~2020-02-29] VITALS: Ht 170.2 cm; Wt 100.4 kg
[~2020-02-29 10:29] MED LIST changes: +AMLODIPINE BESY10 MG PO; +ATORVASTATIN CA20 MG PO; +CLONIDINE HCL0.1 MG PO; +LEVOTHYROXINE50 MCG PO; +METFORMIN HCL500 M2 PO; +METOPROLOL SUCC50 MG PO; +NOVOLOG MI100 UNIT/1 SC; +OMEPRAZOLE40 MG PO; +TERAZOSIN HCL1 MG PO; +VICTOZA 2-0.6 MG/0.1; +ZOLPIDEM TARTRAT5 MG PO
[2020-02-29] MEDS ORDERED: NITROGLYCERIN 2% OINT 1 GM PKT TOP ONE (11:00)
[2020-02-29 11:04] LABS: BASOPHILS % 0.9 % (0.0-1.0); EOSINOPHILS # (AUTO) 0.3 (0.0-0.4); EOSINOPHILS % 6.4 % (0.0-6.0); HEMOGLOBIN 12.1 g/dL (14.0-18.0); LYMPHOCYTES % 23.4 % (18.0-39.1); MEAN CORPUSCULAR HEMOGLOBIN 29.5 pg (28-32); MEAN CORPUSCULAR HGB CONC 32.7 g/dL (31-35); MEAN CORPUSCULAR VOLUME 90.2 fL (81-99); MONOCYTES # (AUTO) 0.5 (0.2-0.8); NEUTROPHILS # (AUTO) 2.5 (2.1-6.9); NEUTROPHILS % 57.1 % (38.7-80.0); PLATELET COUNT 166 x10e3/uL (140-360); RED CELL DISTRIBUTION WIDTH 14.4 % (11.7-14.4)
[2020-02-29 11:06] LABS: CLARITY,URINE HAZY (CLEAR); COLOR,URINE YELLOW (YELLOW); LEUKOCYTE ESTERASE ,URINE NEGATIVE (NEGATIVE); NITRITE,URINE NEGATIVE (NEGATIVE); PROTEIN,URINE DIPSTICK >=300 (NEGATIVE)
[2020-02-29 11:07] LABS: BILIRUBIN,URINE SMALL (NEGATIVE); KETONES,URINE NEGATIVE (NEGATIVE); URINE UROBILINOGEN 0.2 mg/dL (0.2 - 1)
[2020-02-29 11:14] LABS: INR 0.92; PROTHROMBIN TIME 12.8 seconds (11.9-14.5)
[2020-02-29 11:15] LABS: PARTIAL THROMBOPLASTIN TIME 30.4 seconds (23.8-35.5)
[2020-02-29 11:21] LABS: AMORPHOUS SEDIMENT,URINE FEW (FEW); BACTERIA,URINE MODERATE /HPF
[2020-02-29 11:22] LABS: EPITHELIAL CELLS,URINE FEW /LPF; WBC,URINE (MAN) 0-5 /HPF (0-5)
[2020-02-29 11:24] LABS: ALBUMIN 2.3 g/dL (3.5-5.0); ALBUMIN/GLOBULIN RATIO 0.5 (0.8-2.0); ANION GAP 10.5 mmol/L (8-16); CALCIUM 8.7 mg/dL (8.4-10.2); CREATININE, SERUM 2.37 mg/dL (0.72-1.25); POTASSIUM 4.5 mmol/L (3.5-5.1)
[2020-02-29] MEDS ORDERED: ACETAMINOPHEN 325 MG TAB PO ONE (11:30)
[2020-02-29 11:43] LABS: CREATINE KINASE MB 6.9 ng/mL (0-5.0)
[2020-02-29 11:53] LABS: THYROID STIMULATING HORMONE 15.617 uIU/mL (0.350-4.940)
[2020-02-29] MEDS: CEFTRIAXONE SOD 1 GM/NS 50 ML 50 ML IV SCH (12:06)
[2020-02-29] MEDS: AZITHROMYCIN 500MG/NS 250 ML 250 ML IV SCH (12:36)
[2020-02-29] MEDS ORDERED: FUROSEMIDE INJ 10 MG/ML 4 ML VIAL ONE (12:50)
[2020-02-29] MEDS ORDERED: DEXTROSE 50% SYRINGE 50 ML IV PRN (13:15)
[2020-02-29] MEDS ORDERED: HYDRALAZINE HCL 20 MG/ML VIAL IV STA (13:24)
[2020-02-29] MEDS ORDERED: FUROSEMIDE INJ 10 MG/ML 4 ML VIAL IV ONE (13:30)
[2020-02-29 13:35] LABS: FREE THYROXINE INDEX 1.7523 (1.4-3.8)
[2020-02-29] MEDS ORDERED: ONDANSETRON HCL INJ 2MG/ML 2ML 2 MG/ML VIAL IV PRN (13:45)
[2020-02-29] MEDS: ONDANSETRON HCL INJ 2MG/ML 2ML 2 MG/ML VIAL IV PRN (14:03)
[2020-02-29] MEDS ORDERED: ZOLPIDEM TARTRATE 5 MG TAB PO PRN (15:15)
[2020-02-29] MEDS ORDERED: LACTULOSE SYRUP 20 GM/30 ML UDC PO PRN (16:00)
[2020-02-29] MEDS: INSULIN LISPRO 100 UNIT/1 ML 3ML VIAL SQ SCH ×2 (16:30→21:00)
[2020-02-29 16:54] VITALS: BP 163/85
[2020-02-29 16:56] VITALS: BP 163/85
[2020-02-29] MEDS: INSULIN ASPART 70/30 100 UNITS/ML VIAL SC SCH (17:00)
[2020-02-29] MEDS ORDERED: SPIRONOLACTONE 25 MG TAB PO SCH (17:00)
[2020-02-29] MEDS: NITROGLYCERIN 2% OINT 1 GM PKT TOP SCH (17:17)
[2020-02-29] MEDS ORDERED: CYMBALTA30 MG PO (19:04)
[2020-02-29] MEDS ORDERED: METFORMIN HCL500 MG PO (19:04)
[2020-02-29] MEDS: AMITRIPTYLINE HCL 25 MG TAB PO SCH (19:56)
[2020-02-29] MEDS: TERAZOSIN HCL 1 MG CAP PO SCH (19:56)
[2020-02-29] MEDS: ATORVASTATIN 20 MG TAB PO SCH (19:56)
[2020-02-29] MEDS: CLONIDINE HCL 0.1 MG TAB PO SCH (19:56)
[2020-02-29] MEDS: TRAMADOL HCL 50 MG TAB PO PRN (20:11)
[2020-02-29 20:12] VITALS: BP 204/97
[2020-02-29 21:02] VITALS: BP 204/97
[2020-02-29 23:18] LABS: CREATINE KINASE MB 5.1 ng/mL (0-5.0)
[2020-03-01] VITALS (8 sets, daily range): BP systolic 145–200; BP diastolic 72–96
[2020-03-01] MEDS: NITROGLYCERIN 2% OINT 1 GM PKT TOP SCH ×4 (05:51→16:47)
[2020-03-01] MEDS: LEVOTHYROXINE SODIUM 100 MCG TAB PO SCH (05:51)
[2020-03-01] MEDS: HYDRALAZINE HCL 20 MG/ML VIAL IV PRN ×2 (05:51→11:50)
[2020-03-01 07:55] LABS: BASOPHILS % 0.8 % (0.0-1.0); EOSINOPHILS # (AUTO) 0.2 (0.0-0.4); EOSINOPHILS % 4.8 % (0.0-6.0); HEMATOCRIT 33.1 % (38.2-49.6); HEMOGLOBIN 10.5 g/dL (14.0-18.0); LYMPHOCYTES # (AUTO) 1.1 (1.0-3.2); LYMPHOCYTES % 27.8 % (18.0-39.1); MEAN CORPUSCULAR HEMOGLOBIN 29.1 pg (28-32); MEAN CORPUSCULAR HGB CONC 31.7 g/dL (31-35); MEAN CORPUSCULAR VOLUME 91.7 fL (81-99); MONOCYTES # (AUTO) 0.6 (0.2-0.8); MONOCYTES % 14.4 % (4.4-11.3); NEUTROPHILS % 51.2 % (38.7-80.0); PLATELET COUNT 133 x10e3/uL (140-360); RED BLOOD COUNT 3.61 x10e6/uL (4.3-5.7); RED CELL DISTRIBUTION WIDTH 14.7 % (11.7-14.4)
[2020-03-01 08:27] LABS: ALBUMIN 1.9 g/dL (3.5-5.0); ALBUMIN/GLOBULIN RATIO 0.5 (0.8-2.0); ANION GAP 11.3 mmol/L (8-16); CALCIUM 8.2 mg/dL (8.4-10.2); CHOL/HDL RATIO 5.4 (3.9-4.7); CREATININE, SERUM 2.36 mg/dL (0.72-1.25); POTASSIUM 4.3 mmol/L (3.5-5.1)
[2020-03-01] MEDS: Liraglutide (Victoza 2-Pak) 1.2 MG SC SCH (08:34)
[2020-03-01] MEDS: INSULIN ASPART 70/30 100 UNITS/ML VIAL SC SCH ×2 (08:35→16:47)
[2020-03-01] MEDS: METOPROLOL SUCCINATE 50 MG TAB XL PO SCH ×2 (08:36→11:51)
[2020-03-01] MEDS: CLOPIDOGREL BISULFATE 75 MG TAB PO SCH (08:38)
[2020-03-01] MEDS: LACTULOSE SYRUP 20 GM/30 ML UDC PO SCH ×3 (08:39→20:24)
[2020-03-01] MEDS: AMLODIPINE BESYLATE 10 MG TAB PO SCH (08:39)
[2020-03-01] MEDS: PANTOPRAZOLE SOD 40 MG TABEC PO SCH (08:39)
[2020-03-01] MEDS: INSULIN LISPRO 100 UNIT/1 ML 3ML VIAL SQ SCH ×4 (08:43→20:47)
[2020-03-01] MEDS ORDERED: ASPIRIN 81 MG ENTERIC COATED PO SCH (09:00)
[2020-03-01] MEDS ORDERED: CLOPIDOGREL BISULFATE 75 MG TAB PO SCH (09:00)
[2020-03-01] MEDS ORDERED: FUROSEMIDE INJ 10 MG/ML 4 ML VIAL IV SCH (09:00)
[2020-03-01] MEDS ORDERED: LEVOTHYROXINE SODIUM 50 MCG TAB PO SCH (09:00)
[2020-03-01] MEDS ORDERED: PANTOPRAZOLE SOD 40 MG TABEC PO SCH (09:00)
[2020-03-01] MEDS ORDERED: SODIUM CHLORIDE 0.9% 250ML 250 ML ONE (11:28)
[2020-03-01] MEDS: CEFTRIAXONE SOD 1 GM/NS 50 ML 50 ML IV SCH (11:53)
[2020-03-01] MEDS: AZITHROMYCIN 500MG/NS 250 ML 250 ML IV SCH (13:35)
[2020-03-01] MEDS: TRAMADOL HCL 50 MG TAB PO PRN (16:15)
[2020-03-01] MEDS: ATORVASTATIN 20 MG TAB PO SCH (20:24)
[2020-03-01] MEDS: AMITRIPTYLINE HCL 25 MG TAB PO SCH (20:24)
[2020-03-01] MEDS: CLONIDINE HCL 0.1 MG TAB PO SCH (20:24)
[2020-03-01] MEDS: TERAZOSIN HCL 1 MG CAP PO SCH (20:24)
[2020-03-02] VITALS (9 sets, daily range): BP systolic 146–182; BP diastolic 64–98
[2020-03-02 03:44] LABS: FERRITIN 47.15 ng/mL (21.81-274.66)
[2020-03-02] MEDS: HYDRALAZINE HCL 20 MG/ML VIAL IV PRN ×2 (04:39→11:30)
[2020-03-02] MEDS: NITROGLYCERIN 2% OINT 1 GM PKT TOP SCH ×5 (05:12→23:32)
[2020-03-02] MEDS: LEVOTHYROXINE SODIUM 100 MCG TAB PO SCH (05:50)
[2020-03-02] MEDS: INSULIN LISPRO 100 UNIT/1 ML 3ML VIAL SQ SCH ×4 (07:30→21:40)
[2020-03-02] MEDS: PANTOPRAZOLE SOD 40 MG TABEC PO SCH (08:00)
[2020-03-02] MEDS: INSULIN ASPART 70/30 100 UNITS/ML VIAL SC SCH ×2 (09:00→17:00)
[2020-03-02] MEDS: Liraglutide (Victoza 2-Pak) 1.2 MG SC SCH (09:00)
[2020-03-02] MEDS: LACTULOSE SYRUP 20 GM/30 ML UDC PO SCH ×3 (09:29→21:00)
[2020-03-02] MEDS: AMLODIPINE BESYLATE 10 MG TAB PO SCH (09:30)
[2020-03-02] MEDS: CLOPIDOGREL BISULFATE 75 MG TAB PO SCH (09:30)
[2020-03-02] MEDS: METOPROLOL SUCCINATE 50 MG TAB XL PO SCH (09:30)
[2020-03-02] MEDS ORDERED: FUROSEMIDE INJ 10 MG/ML 4 ML VIAL IV ONE (12:00)
[2020-03-02] MEDS: CEFTRIAXONE SOD 1 GM/NS 50 ML 50 ML IV SCH (12:37)
[2020-03-02] MEDS: NIFEDIPINE CR 30 MG TAB PO SCH ×2 (12:40→21:40)
[2020-03-02] MEDS: AZITHROMYCIN 500MG/NS 250 ML 250 ML IV SCH (14:09)
[2020-03-02] MEDS: ACETAMINOPHEN 325 MG TAB PO PRN (14:40)
[2020-03-02] MEDS ORDERED: CLONIDINE HCL 0.1 MG TAB PO PRN (14:45)
[2020-03-02] MEDS: ONDANSETRON HCL INJ 2MG/ML 2ML 2 MG/ML VIAL IV PRN (15:19)
[2020-03-02] MEDS ORDERED: BUMETANIDE 1 MG TAB PO SCH (17:00)
[2020-03-02] MEDS: ATORVASTATIN 20 MG TAB PO SCH (21:40)
[2020-03-02] MEDS: TERAZOSIN HCL 1 MG CAP PO SCH (21:40)
[2020-03-03 04:00] VITALS: BP 130/63
[2020-03-03] MEDS: NITROGLYCERIN 2% OINT 1 GM PKT TOP SCH ×4 (05:47→23:29)
[2020-03-03] MEDS: LEVOTHYROXINE SODIUM 100 MCG TAB PO SCH (06:12)
[2020-03-03] MEDS: PANTOPRAZOLE SOD 40 MG TABEC PO SCH (06:12)
[2020-03-03 06:59] LABS: ALBUMIN/GLOBULIN RATIO 0.5 (0.8-2.0); ANION GAP 12.3 mmol/L (8-16); CALCIUM 8.1 mg/dL (8.4-10.2); CREATININE, SERUM 2.89 mg/dL (0.72-1.25); POTASSIUM 4.3 mmol/L (3.5-5.1)
[2020-03-03 08:45] VITALS: BP 130/63
[2020-03-03] MEDS: INSULIN LISPRO 100 UNIT/1 ML 3ML VIAL SQ SCH ×4 (09:00→20:53)
[2020-03-03] MEDS: INSULIN ASPART 70/30 100 UNITS/ML VIAL SC SCH ×2 (09:00→16:30)
[2020-03-03] MEDS: Liraglutide (Victoza 2-Pak) 1.2 MG SC SCH (09:00)
[2020-03-03] MEDS: CLOPIDOGREL BISULFATE 75 MG TAB PO SCH (10:44)
[2020-03-03] MEDS: LACTULOSE SYRUP 20 GM/30 ML UDC PO SCH ×3 (10:44→20:38)
[2020-03-03] MEDS: BUMETANIDE 1 MG TAB PO SCH (10:45)
[2020-03-03] MEDS: IRON SUCROSE 100 MG in SODIUM CHLORIDE 0.9% 100 ML 100 ML IV SCH (10:55)
[2020-03-03] MEDS: METOPROLOL SUCCINATE 50 MG TAB XL PO SCH (10:55)
[2020-03-03] MEDS: NIFEDIPINE CR 30 MG TAB PO SCH ×2 (10:55→20:30)
[2020-03-03] MEDS: ACETAMINOPHEN 325 MG TAB PO PRN ×2 (11:37→18:09)
[2020-03-03 12:21] VITALS: BP 148/78
[2020-03-03] MEDS: CEFTRIAXONE SOD 1 GM/NS 50 ML 50 ML IV SCH (12:46)
[2020-03-03] MEDS: AZITHROMYCIN 500MG/NS 250 ML 250 ML IV SCH (13:48)
[2020-03-03 16:55] VITALS: BP 137/72
[2020-03-03 20:17] VITALS: BP 153/59
[2020-03-03] MEDS: TERAZOSIN HCL 1 MG CAP PO SCH (20:30)
[2020-03-03] MEDS: ATORVASTATIN 20 MG TAB PO SCH (20:30)
[2020-03-03 21:00] VITALS: BP 153/59
[2020-03-04] VITALS (8 sets, daily range): BP systolic 105–172; BP diastolic 73–118
[2020-03-04] MEDS ORDERED: BISACODYL 5 MG TAB EC PO STA (01:44)
[2020-03-04] MEDS ORDERED: METRONIDAZOLE 500MG/NS 100ML 100 ML IV STA (01:52)
[2020-03-04] MEDS ORDERED: SODIUM CHLORIDE 0.9% 250ML 250 ML ONE (02:22)
[2020-03-04] MEDS: LEVOTHYROXINE SODIUM 100 MCG TAB PO SCH (03:40)
[2020-03-04] MEDS: NITROGLYCERIN 2% OINT 1 GM PKT TOP SCH ×3 (03:40→18:00)
[2020-03-04] MEDS: PANTOPRAZOLE SOD 40 MG TABEC PO SCH (03:41)
[2020-03-04] MEDS: INSULIN LISPRO 100 UNIT/1 ML 3ML VIAL SQ SCH ×4 (07:30→20:30)
[2020-03-04] MEDS: LACTULOSE SYRUP 20 GM/30 ML UDC PO SCH ×3 (09:00→20:32)
[2020-03-04] MEDS: Liraglutide (Victoza 2-Pak) 1.2 MG SC SCH (09:00)
[2020-03-04] MEDS: INSULIN ASPART 70/30 100 UNITS/ML VIAL SC SCH ×2 (09:00→17:00)
[2020-03-04] MEDS: METRONIDAZOLE 500MG/NS 100ML 100 ML IV SCH ×3 (09:14→20:32)
[2020-03-04] MEDS: BUMETANIDE 1 MG TAB PO SCH (09:24)
[2020-03-04] MEDS: LORATADINE/PSEUDOEPHEDRINE 24 HR SR TAB PO SCH (09:24)
[2020-03-04] MEDS: NIFEDIPINE CR 30 MG TAB PO SCH ×2 (09:24→20:31)
[2020-03-04] MEDS: METOPROLOL SUCCINATE 50 MG TAB XL PO SCH ×2 (09:24→16:58)
[2020-03-04] MEDS ORDERED: PROPOFOL IV EMULSION 10 MG/ML 20 ML VIAL ONE (12:20)
[2020-03-04] MEDS ORDERED: LIDOCAINE HCL 2% LOCAL INJ 5 ML SDV VIAL INJ ONE (12:20)
[2020-03-04] MEDS: CLOPIDOGREL BISULFATE 75 MG TAB PO SCH (12:24)
[2020-03-04] MEDS: CEFTRIAXONE SOD 1 GM/NS 50 ML 50 ML IV SCH (12:27)
[2020-03-04] MEDS: IRON SUCROSE 100 MG in SODIUM CHLORIDE 0.9% 100 ML 100 ML IV SCH (13:38)
[2020-03-04] MEDS ORDERED: FENTANYL CITRATE/PF 100MCG/2 ML INJ ONE (13:50)
[2020-03-04] MEDS ORDERED: MIDAZOLAM HCL 2 MG/2 ML VIAL ONE (13:50)
[2020-03-04] MEDS: AZITHROMYCIN 500MG/NS 250 ML 250 ML IV SCH (16:58)
[2020-03-04] MEDS: ATORVASTATIN 20 MG TAB PO SCH (20:31)
[2020-03-04] MEDS: TERAZOSIN HCL 1 MG CAP PO SCH (20:31)
[2020-03-05 00:21] VITALS: BP 134/83
[2020-03-05] MEDS: METRONIDAZOLE 500MG/NS 100ML 100 ML IV SCH ×2 (02:41→10:48)
[2020-03-05] MEDS: NITROGLYCERIN 2% OINT 1 GM PKT TOP SCH ×3 (04:59→12:00)
[2020-03-05] MEDS: LEVOTHYROXINE SODIUM 100 MCG TAB PO SCH (05:01)
[2020-03-05 06:04] VITALS: BP 132/89
[2020-03-05 06:31] LABS: BASOPHILS # (AUTO) 0.1 (0.0-0.1); BASOPHILS % 0.9 % (0.0-1.0); EOSINOPHILS # (AUTO) 0.3 (0.0-0.4); HEMOGLOBIN 10.3 g/dL (14.0-18.0); LYMPHOCYTES # (AUTO) 1.2 (1.0-3.2); LYMPHOCYTES % 21.7 % (18.0-39.1); MEAN CORPUSCULAR HEMOGLOBIN 29.7 pg (28-32); MEAN CORPUSCULAR HGB CONC 32.2 g/dL (31-35); MEAN CORPUSCULAR VOLUME 92.2 fL (81-99); MONOCYTES # (AUTO) 0.8 (0.2-0.8); MONOCYTES % 15.1 % (4.4-11.3); NEUTROPHILS # (AUTO) 3.2 (2.1-6.9); NEUTROPHILS % 56.8 % (38.7-80.0); PLATELET COUNT 175 x10e3/uL (140-360); RED BLOOD COUNT 3.47 x10e6/uL (4.3-5.7); RED CELL DISTRIBUTION WIDTH 14.8 % (11.7-14.4)
[2020-03-05 07:07] LABS: ANION GAP 14.3 mmol/L (8-16); CALCIUM 8.1 mg/dL (8.4-10.2); CREATININE, SERUM 2.95 mg/dL (0.72-1.25); POTASSIUM 4.3 mmol/L (3.5-5.1)
[2020-03-05] MEDS: INSULIN LISPRO 100 UNIT/1 ML 3ML VIAL SQ SCH ×2 (07:30→11:30)
[2020-03-05 07:59] VITALS: BP 132/89
[2020-03-05] MEDS: Liraglutide (Victoza 2-Pak) 1.2 MG SC SCH (09:00)
[2020-03-05] MEDS: INSULIN ASPART 70/30 100 UNITS/ML VIAL SC SCH (09:00)
[2020-03-05 09:14] VITALS: BP 176/70
[2020-03-05] MEDS: PANTOPRAZOLE SOD 40 MG TABEC PO SCH (10:38)
[2020-03-05] MEDS: BUMETANIDE 1 MG TAB PO SCH (10:38)
[2020-03-05] MEDS: LORATADINE/PSEUDOEPHEDRINE 24 HR SR TAB PO SCH (10:38)
[2020-03-05] MEDS: CLOPIDOGREL BISULFATE 75 MG TAB PO SCH (10:39)
[2020-03-05] MEDS: NIFEDIPINE CR 30 MG TAB PO SCH (10:40)
[2020-03-05] MEDS: METOPROLOL SUCCINATE 50 MG TAB XL PO SCH (10:41)
[2020-03-05] MEDS: LACTULOSE SYRUP 20 GM/30 ML UDC PO SCH (10:43)
[2020-03-05] MEDS: HYDRALAZINE HCL 20 MG/ML VIAL IV PRN (11:38)
[2020-03-05 12:35] VITALS: BP 184/79
[2020-03-05 12:36] VITALS: BP 170/83
[2020-03-05] MEDS: IRON SUCROSE 100 MG in SODIUM CHLORIDE 0.9% 100 ML 100 ML IV SCH (12:37)
[2020-03-05] MEDS ORDERED: ONDANSETRON HCL 4 MG ORAL DISINTEGRATING TAB PO PRN (14:00)
[2020-03-05] MEDS ORDERED: PROTONIX20 MG PO (15:02)
[2020-03-05] MEDS ORDERED: FLAGYL250 MG PO (15:03)
[2020-03-05] MEDS ORDERED: DIFLUCAN200 MG PO (15:03)
[2020-03-05] MEDS ORDERED: LASIX40 MG PO (15:04)
[2020-03-05] MEDS ORDERED: NIFEDIPINE CR 30 MG TAB PO SCH (21:00)
== END 2020-03-05 15:33 | disposition home or self-care (01) | DRG 442 ==
LOC: ER 10:56 → ERHOLD 13:22 → MED/SURG3 16:32
PROC: 0DB68ZX Excision of Stomach, Via Natural or Artificial Opening Endoscopic, Diagnostic (ICD-10-PCS; 2020-03-04)
PROC: 0DB98ZX Excision of Duodenum, Via Natural or Artificial Opening Endoscopic, Diagnostic (ICD-10-PCS; principal; 2020-03-04 11:25)
PROC: 0DB78ZX Excision of Stomach, Pylorus, Via Natural or Artificial Opening Endoscopic, Diagnostic (ICD-10-PCS; 2020-03-04 11:25)
DX: B19.20 Unspecified viral hepatitis C without hepatic coma (principal); N17.9 Acute kidney failure, unspecified; N18.4 Chronic kidney disease, stage 4 (severe); B37.81 Candidal esophagitis; K74.60 Unspecified cirrhosis of liver; B19.10 Unspecified viral hepatitis B without hepatic coma; E11.22 Type 2 diabetes mellitus with diabetic chronic kidney disease; I25.10 Atherosclerotic heart disease of native coronary artery without angina pectoris; E03.9 Hypothyroidism, unspecified; Z95.1 Presence of aortocoronary bypass graft; K59.00 Constipation, unspecified; I12.9 Hypertensive chronic kidney disease with stage 1 through stage 4 chronic kidney disease, or unspecified chronic kidney disease; Z11.59 Encounter for screening for other viral diseases; D50.9 Iron deficiency anemia, unspecified; K29.70 Gastritis, unspecified, without bleeding
CPT/HCPCS: 36415; 43235; 43239; 70450; 71045; 71046; 71250; 74176; 76770; 80048; 80053; 80061; 81001; 82105; 82140; 82550; 82553; 82607; 82728; 82746; 82948; 83540; 83880; 84436; 84443; 84466; 84479; 84481; 84484; 85025; 85045; 85610; 85730; 86704; 86706; 87040; 87086; 87106; 87205; 87521; 88304; 88305; 88312; 93005; 93306; 96372; 99284; J0360; J0456; J0696; J1756; J1815; J1940; J2001; J2250; J2405; J3010; J7050; U0002

== ENCOUNTER 2020-03-11 15:31 | Emergency (ER) | payer MEDICARE ==
[~2020-03-11] VITALS: Ht 170.2 cm; Wt 100.2 kg
[~2020-03-11 15:31] MED LIST changes: +CYMBALTA30 MG PO; +DIFLUCAN200 MG PO; +FLAGYL250 MG PO; +LASIX40 MG PO; +METFORMIN HCL500 MG PO; +PROTONIX20 MG PO
[2020-03-11] MEDS ORDERED: CEFEPIME 1GM/NS 0.9% 50 ML 50 ML IV STA (15:37)
--- NOTE | 2020-03-11 15:41 | Emergency Department Note ---
History of Present Illnes History of Present Illness Chief Complaint: Respiratory History of Present Illness This is a 70 year old male Chief Complaint Comment Patient in from [facility] with complaints of shortness of breath and difficulty breathing that started to get worse just a day after being discharged from this hospital last week. Patient has a cough and has not been able to sleep in the last 2 days. Historian: Patient Arrival Mode: Car Supervisor Laboratory Animal Facility Required: No Onset (how long ago): day(s) Location: Lungs Quality: SOB Radiation: Reports non-radiation Severity: severe Onset quality: gradual Duration (how long): day(s) Timing of current episode: constant Progression: worsening Chronicity: new Context: Denies recent illness, Denies recent surgery Relieving factors: none Exacerbating factors: none Associated symptoms: Reports denies other symptoms Treatments prior to arrival: none Past Medical/Family History Physician Review I have reviewed the patient's past medical and family history. Any updates have been documented here. 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 Past Surgical History: Cholecysctectomy Other Surgery: left knee meniscus surgery triple bypass 2007 Review of Systems Review of Systems Constitutional: Reports no symptoms EENTM: Reports no symptoms Cardiovascular: Reports no symptoms Respiratory: Reports as per HPI, Reports cough, Reports dyspnea Gastrointestinal: Reports no symptoms Genitourinary: Reports no symptoms Musculoskeletal: Reports no symptoms Integumentary: Reports no symptoms Neurological: Reports no symptoms Psychological: Reports no symptoms Endocrine: Reports no symptoms Hematological/Lymphatic: Reports no symptoms Physical Exam Related Data Allergies: Coded Allergies: codeine (Verified Allergy, Unknown, 11/14/12) Triage Vital Signs Vital Signs Date Time Temp Pulse Resp B/P (MAP) Pulse Ox O2 Delivery O2 Flow Rate FiO2 03/11/20 15:34 97.6 90 34 175/97 52 Nasal Cannula 4.0 Vital signs reviewed: Yes Physical Exam CONSTITUTIONAL Constitutional: Present well-developed, Present well-nourished HENT HENT: Present normocephalic, Present atraumatic, Present oropharynx clear/moist, Present nose normal HENT L/R: Present left ext ear normal, Present right ext ear normal EYES Eyes: Reports PERRL, Reports conjunctivae normal NECK Neck: Present ROM normal PULMONARY Pulmonary: Present respiratory distress, Present rales; Absent effort normal, Absent breath sounds normal CARDIOVASCULAR Cardiovascular: Present regular rhythm, Present heart sounds normal, Present capillary refill normal, Present normal rate GASTROINTESTINAL Abdominal: Present soft, Present nontender, Present bowel sounds normal GENITOURINARY Genitourinary: Present exam deferred SKIN Skin: Present warm, Present dry MUSCULOSKELETAL Musculoskeletal: Present ROM normal, Present edema (BLE) NEUROLOGICAL Neurological: Present alert, Present oriented x 3, Present no gross motor or sensory deficits PSYCHOLOGICAL Psychological: Present mood/affect normal, Present judgement normal Results Laboratory Lab results reviewed: Yes Imaging Imaging results reviewed: Yes Diagnostics Tests Diagnostic test(s) reviewed: Yes Procedures 12 Lead ECG Interpretation ECG Interpretation : Supervisor Laboratory Animal Facility: Interpreted by ED physician Date: Mar 11, 2020 Rhythm: sinus rhythm Rate: normal QRS axis: normal ST segments normal: Yes T waves normal: Yes Clinical Impression: non-specific ECG Assessment & Plan Medical Decision Making MDM 70-year-old male with past medical history of CHF presents to emergency depart [facility] for worsening shortness of breath. He is recently admitted for a stroke problems B is unsure as to why. Examination shows diffuse crackles in lung bases and moderate respiratory distress. Initial oxygen saturation 70% on room air. Is given 40 mg of IV Lasix and placed on BiPAP. Patient refused fluids. Suspect COVID with CXR findings. COVID +. 6mg Decadron given. Will Transfer to [facility]. Spoke with Dr. Palmer who has agreed to accept. Stable for transfer. Reassessment Reassessment time: 18:06 Reassessment Breathing much improved Assessment & Plan Final Impression: (1) COVID-19 Depart Disposition: TRANS TO OTHER [facility] Last Vital Signs Date Time Temp Pulse Resp B/P (MAP) Pulse Ox O2 Delivery O2 Flow Rate FiO2 03/11/20 15:34 97.6 90 34 175/97 52 Nasal Cannula 4.0 Home Meds Reported Medications Furosemide (LASIX) 40 Mg Tablet, 40 MG PO QAM, #30 TAB 03/05/20 Fluconazole (DIFLUCAN) 200 Mg Tablet, 200 MG PO DAILY, #5 03/05/20 Metronidazole (FLAGYL) 250 Mg Tablet, 250 MG PO TID, #15 03/05/20 Pantoprazole Sodium (PROTONIX) 20 Mg Tablet.dr, 40 MG PO DAILY, #30 TAB 03/05/20 Metformin Hcl (METFORMIN HCL) 500 Mg Tablet, 1000 MG PO BID, #60 TAB 02/29/20 Duloxetine Hcl (CYMBALTA) 30 Mg Capsule.dr, 60 MG PO DAILY, #30 CAP 02/29/20 Insuln Asp Prt/Insulin Aspart (NOVOLOG MIX 70-30 FLEXPEN SYRN) 100 Unit/1 Ml Insuln.pen, 25 UNIT SC BID, SYR 10/02/19 Atorvastatin Calcium (ATORVASTATIN CALCIUM) 20 Mg Tablet, 20 MG PO DAILY, #30 TAB 10/02/19 Zolpidem Tartrate (ZOLPIDEM TARTRATE) 5 Mg Tablet, 5 MG PO HS PRN for INSOMNIA, #30 TAB 10/02/19 Clonidine Hcl (CLONIDINE HCL) 0.1 Mg Tablet, 1 TAB PO HS, #60 TAB 10/02/19 Terazosin Hcl (TERAZOSIN HCL) 1 Mg Capsule, 2 MG PO HS, #30 CAP 10/02/19 Metoprolol Succinate (METOPROLOL SUCCINATE) 50 Mg Tab.er.24h, 50 MG PO DAILY, MG 10/02/19 Amlodipine Besylate (AMLODIPINE BESYLATE) 10 Mg Tablet, 10 MG PO DAILY, #30 TAB 10/02/19 Liraglutide (VICTOZA 2-TAMMY) 0.6 Mg/0.1 Ml Pen.injctr, 1.2 MG DAILY 10/02/19 Levothyroxine Sodium (LEVOTHYROXINE SODIUM) 50 Mcg Tablet, 100 MCG PO DAILY, #30 TAB 10/02/19 Omeprazole (OMEPRAZOLE) 40 Mg Capsule.dr, 20 MG PO DAILY 10/02/19 Lansoprazole (PREVACID) 30 Mg Capsule.dr, MG PO DAILY 11/14/12 Clopidogrel Bisulfate* (PLAVIX) 75 Mg Tablet, 75 MG PO DAILY 11/14/12 Medications in the ED Cefepime HCl 50 ml @ 100 mls/hr Q24H STAT IV ; Start 03/11/20 at 15:37; Stop 03/11/20 at 16:06; Status UNV Furosemide 40 mg ONCE ONCE IV ; Start 03/11/20 at 15:45; Stop 03/11/20 at 15:46; Status UNV DEMETRIUS MONIQUE MD Mar 11, 2020 15:41
[2020-03-11] MEDS ORDERED: FUROSEMIDE INJ 10 MG/ML 4 ML VIAL IV ONE (15:45)
--- OUTSIDE RECORDS SUMMARY | 2020-03-11 15:51 | XMS REPORT | Continuity of Care Document ---
Author Author [facility] t Organization [facility] Address [address] [place] [address] Phone Unavailable Care Team Providers Care Aviation Project Engineer Name Role Phone DO ELSY YAO PCP RIVERA, SOUHEIL Attphys Unavailable Michael Hopson Attphys Addis YAO Attphys Unavailable ADDIE LAINEZ Attphys Unavailable RIVERA, SOUHEIL Admphys Unavailable Payers Payer Name Policy Type Policy Number Effective Date Expiration Date Khloe lopez [employer] Medicare Replacement [id number] 2019 00:00:0 0 [facility] Problems Condition Name Condition Details Condition Category Status Onset Date Resolution Date Last Treatment Date Treating Clinician Comments Source Chest pain Problem Active [facility] Renal insufficiency Problem Active [facility] Hyperkalemia Problem Active [facility] Elevated transaminase measurement Problem Active [facility] Congestive heart failure Problem Active [facility] Abdominal ascites Problem Active [facility] Hypoalbuminemia Problem Active [facility] Allergies, Adverse Reactions, Alerts Allergy Name Allergy Type Status Severity Reaction(s) Onset Date Inacti ve Date Treating Clinician Comments Source codeine DA Active SV 2017-03-11 00:00:00 [facility] Codeine Allergy to substance Active 2012-11-14 00:00:00 [facility] Social History Social Habit Start Date Stop Date Quantity Comments Source Sex Assigned At 1950 00:00:00 1950 00:00:00 Male [facility] Medications Ordered Medication Name Filled Medication Name Start Date Stop Da te Current Medication? Ordering Clinician Indication Dosage Frequency Signature (SIG) Comments Components Source Tramadol Hcl (Ultram 50MG*) 50 Mg TAB Tramadol Hcl (Ultram 5 0MG*) 50 Mg TAB 2019-08-19 12:36:00 2020-02-29 00:00:00 No 50 Every 6 Hours as needed for Mild Pain (1-3) Or Fever>100.8 [facility] Amlodipine Besylate Amlodipine Besylate Yes 10 Daily [facility] Atorvastatin Calcium Atorvastatin Calcium Yes 20 Daily [facility] Clonidine Hcl Clonidine Hcl Yes 1 Bedtime [facility] Clopidogrel Bisulfate (Plavix) 75 Mg TABLET Clopidogre l Bisulfate (Plavix) 75 Mg TABLET Yes 75 Daily [facility] Duloxetine Hcl (Cymbalta) 30 Mg CAPSULE. Duloxetine Hcl (Cymbalta) 30 Mg CAPSULE. Yes 60 Daily [facility] Fluconazole (Diflucan) 200 Mg TABLET Fluconazole (Diflucan) 200 Mg TABLET Yes 200 Daily [facility] Furosemide (Lasix) 40 Mg TABLET Furosemide (Lasix) 40 Mg TABLET Yes 40 Every Morning [facility] Insuln Asp Prt/Insulin Aspart (Novolog M ix 70-30 Flexpen Syrn) 100 Unit/1 Ml INSULN.PEN Insuln Asp Prt/Insulin Aspart (Novolog M ix 70-30 Flexpen Syrn) 100 Unit/1 Ml INSULN.PEN Yes 25 Twice A Day [facility] Lansoprazole (Prevacid) 30 Mg CAPSULE. Lansoprazole (Prevacid) 30 Mg CAPSULE. Yes Daily [facility] Levothyroxine Sodium Levothyroxine Sodium Yes 100 Daily [facility] Liraglutide (Victoza 2-Geovani) 0.6 Mg/0.1 Ml PEN.INJCTR L iraglutide (Victoza 2-Geovani) 0.6 Mg/0.1 Ml PEN.INJCTR Yes 1.2 Daily [facility] Metformin Hcl Metformin Hcl Yes 1000 Twice A Day [facility] Metoprolol Succinate Metoprolol Succinate Yes 50 Daily [facility] Metronidazole (Flagyl) 250 Mg TABLET Metronidazole (Flagyl) 250 Mg TABLET Yes 250 Three Times A Day [facility] Omeprazole Omeprazole Yes [address] [facility] Pantoprazole Sodium (Protonix) 20 Mg TABLET. Pantopr azole Sodium (Protonix) 20 Mg TABLET. Yes 40 Daily [facility] Terazosin Hcl Terazosin Hcl Yes 2 Bedtime [facility] Zolpidem Tartrate Zolpidem Tartrate Yes 5 Bedtime as needed for Insomnia [facility] Amitriptyline Hcl Amitriptyline Hcl 2020-02-29 00:00:00 No 25 Bedtime [facility] Amitriptyline Hcl Amitriptyline Hcl 2020-02-29 00:00:00 No Daily [facility] Glipizide Glipizide 2020-02-29 00:00:00 No Daily [facility] Lisinopril Lisinopril 2020-02-29 00:00:00 No Netta ly [facility] Metformin Hcl (Metformin Hcl Er) 500 Mg TAB.ER.24 Metf ormin Hcl (Metformin Hcl Er) 500 Mg TAB.ER.24 2020-02-29 00:00:00 No 500 Twi ce A Day [facility] Metoprolol Tartrate Metoprolol Tartrate 2020-02-29 00:00:00 No Twice A Day [facility] Saxagliptin Hcl/Metformin Hcl (Kombiglyze Xr 2.5-1,000 Mg Tab) 1 Each TBMP.24HR Saxagliptin Hcl/Metformin Hcl (Kombiglyze Xr 2.5-1,000 Mg Tab) 1 Each TBMP.24HR 2020-02-29 00:00:00 No Daily [facility] Simvastatin Simvastatin 2020-02-29 00:00:00 No D aily [facility] Vital Signs Vital Name Observation Time Observation Value Comments Source BP Systolic 2020-03-05 12:36:00 170 mm[Hg] [facility] BP Diastolic 2020-03-05 12:36:00 83 mm[Hg] [facility] Body Temperature 2020-03-05 12:35:00 97.3 [degF] [facility] Heart Rate 2020-03-05 12:35:00 107 /min [facility] Respiratory rate 2020-03-05 12:35:00 24 /min [facility] Oxygen saturation by Pulse oximetry 2020-03-05 12:35:00 98 /min [facility] Weight 2020-03-04 02:00:00 221.38 [lb_av] [facility] BMI (Body Mass Index) 2020-03-04 02:00:00 34.7 kg/m2 [facility] Body Temperature 2019-10-03 16:07:00 96.7 [degF] [facility] BMI (Body Mass Index) 2019-10-02 01:30:00 27.4 kg/m2 [facility] Weight 2019-10-01 18:51:00 175 [lb_av] [facility] Procedures Procedure Date / Time Performed Performing Clinician [facility] e X-ray of chest, two views 2020-03-05 00:00:00 [facility] Ultrasound, renal 2020-03-02 00:00:00 [facility] Computed tomography of brain without radiopaque contrast 2020-02 00:00:00 [facility] Computed tomography of chest without contrast 2020-02-29 00:00:0 [address] [facility] [address] of abdomen and pelvis without contrast 2020-02-29 00:00:00 [facility] Computed tomography of chest with contrast 2019-09-11 00:00:00 [facility] [place] 31MIN-1HR 2019-09-11 00:00:00 C AFTAB [facility] Plan of Care Planned Activity Planned Date Details Comments Source Instructions Ascites [facility] Instructions Congestive Heart Failure [facility] Encounters Start Date/Time End Date/Time Encounter Type Admission Type Attendi [facility] Care Department Encounter ID Source 2019-10-07 00:00:00 2019-10-07 00:00:00 Telephone [facility] [place] [facility] [id number] 2019-10-01 20:56:00 2019-10-03 18:56:00 Discharged Inpatient (obs) 1 NICOLE JUAN [facility] [id number] [facility] 2019-09-11 10:08:00 2019-09-11 10:08:00 Registered Clinic 3 ELSY WILKERSON [facility] [id number] [facility] 2019-08-19 10:08:00 2019-08-19 13:21:00 Departed Emergency Room 1 ADDIE LAINEZ [facility] [id number] [facility] Results Test Description Test Time Test Comments Results Result Comments Source Capillary blood glucose measurement by glucometer (mas s/volume) 2020-03-05 11:26:00 Test Item Bedside Glucose (test code = 95400-1) 132 mg/dL 70-120 Meter ID: [id number] [facility] SystemCHEST 2 VIEWS 2020-03-05 07:47:[address] [facility] 1950 Sex: M* [facility] [address] [place] [id number] Patient Name: MARILY RENTERIA MR #: [id number] : 1950 Age/Sex: 70/M Req #: [id number] Adm Physician: JUAN RIVERA MD Ordered by: JUAN RIVERA MD Report #: [id number] Location: MED/SURG3 Room/Bed: [facility] Procedure: [id number] DX/CHEST 2 VIEWS Exam Date: 04/12 Exam Time: 619 REPORT STATUS: Signed EXAMINATION: CHEST 2 VIEWS CHAVEZ CATION: shortness of breath [id number] COMPARISON: Chest CT 02/29/2020 FINDINGS: TUBES and LINES: None. LUNGS/PLEU RA: Normal lung volumes. Mild prominence of interstitial lung markings. Prominent central pulmonary vasculature. Blunted costophrenic sulci. No pneumo thorax. HEART AND MEDIASTINUM: Cardiac size is mildly enlarged. Surgic al changes along the mediastinum. Coronary stent versus coronary calcification . BONES AND SOFT TISSUES: No acute osseous lesion. Soft tissues are unr emarkable. Sternotomy wires. Degenerative changes. UPPER ABDOMEN: No free a ir under the diaphragm. IMPRESSION: Mild cardiomegaly and mild pu lmonary additional edema with small bilateral pleural effusions. Signed b y: Kenroy Jameson DO on 03/05/2020 7:50 AM Dictated By: KENROY JAMESON DO 9 Transcribed By: EARLINE on 03/05/20749 COPY TO: JUAN RIVERA MD Blood leukocytes automated count (number/volume)2020-03-05 06:20:00* Test Item Value Reference Range Interpretation Comments White Blood Count (test code = 6690-2) 5.58 10*3/uL 4.8-10.8 [facility] erythrocytes automated count (number/volume)2020-03-05 06:20:00* Test Item Value Reference Range Interpretation Comments Red Blood Count (test code = 789-8) 3.47 10*6/mL 4.3-5.7 [facility] SystemBlood hemoglobin measurement (moles/volume)2020-03-05 06:20:00* Test Item Value Reference Range Interpretation Comments Hemoglobin (test code = 03605-2) 10.3 g/dL 14.0-18.0 [facility] SystemAutomated blood hematocrit (volume fraction)2020-03-05 06:20:00* Test Item Value Reference Range Interpretation Comments Hematocrit (test code = 4544-3) 32.0 % 38.2-49.6 [facility] SystemAutomated erythrocyte mean corpuscular obdzha0668-78-45 06:20:00* Test Item Value Reference Range Interpretation Comments Mean Corpuscular Volume (test code = 787-2) 92.2 81-99 [facility] SystemAutomated erythrocyte mean corpuscular hemoglobin (mass per erythrocyte)2020-03-05 06:20:00* Test Item Value Reference Range Interpretation Comments Mean Corpuscular Hemoglobin (test code = 785-6) 29.7 pg 28-32 [facility] SystemAutomated erythrocyte mean corpuscular hemoglobin concentration measurement (mass/volume)2020-03-05 06:20:00* Test Item Value Reference Range Interpretation Comments Mean Corpuscular Hemoglobin Concent (test code = 786-4) 32.2 g/dL 31-35 [facility] SystemRDW CklXl-Hlk7853-81-12 06:20:00* Test Item Value Reference Range Interpretation Comments Red Cell Distribution Width (test code = 08070-8) 14.8 % 11.7 -14.4 [facility] SystemAutomated blood platelet count (count/volume)2020-03-05 06:20:00* Test Item Value Reference Range Interpretation Comments Platelet Count (test code = 777-3) 175 10*3/uL 140-360 [facility] SystemAutomated blood segmented neutrophil count as percentage of total lvtaxswyad2589-15-01 06:20:00* Test Item Value Reference Range Interpretation Comments Neutrophils (%) (Auto) (test code = 20521-5) 56.8 % 38.7-80.0 [facility] SystemAutomated blood lymphocyte count as percentage ot total bbmnidvgij4846-04-60 06:20:00* Test Item Value Reference Range Interpretation Comments Lymphocytes (%) (Auto) (test code = 736-9) 21.7 % 18.0-39.1 [facility] SystemAutomated blood monocyte count as percentage of total opotesowqm8233-58-40 06:20:00* Test Item Value Reference Range Interpretation Comments Monocytes (%) (Auto) (test code = 5905-5) 15.1 % 4.4-11.3 [facility] SystemAutomated blood eosinophil count as percentage of total zjglxekdla8013-82-72 06:20:00* Test Item Value Reference Range Interpretation Comments Eosinophils (%) (Auto) (test code = 713-8) 5.0 % 0.0-6.0 [facility] SystemAutomated blood basophil count as percentage of total nzgtymwlok8203-95-20 06:20:00* Test Item Value Reference Range Interpretation Comments Basophils (%) (Auto) (test code = 706-2) 0.9 % 0.0-1.0 [facility] SystemFluoroscopic procedure less than one hour bthganor9707-51-55 06:20:00* Test Item Value Reference Range Interpretation Comments IM GRANULOCYTES % (test code = IM GRANULOCYTES %) 0.5 % 0.0- 1.0 [facility] SystemAutomated blood neutrophil count 2020-03-05 06:20:00* Test Item Value Reference Range Interpretation Comments Neutrophils # (Auto) (test code = 751-8) 3.2 2.1-6.9 [facility] SystemBlood lymphocytes count (number/volume) 2020-03-05 06:20:00* Test Item Value Reference Range Interpretation Comments Lymphocytes # (Auto) (test code = 71487-2) 1.2 1.0-3.2 [facility]Bl[facility] monocytes automated count (number/volume)2020-03-05 06:20:00* Test Item Value Reference Range Interpretation Comments Monocytes # (Auto) (test code = 742-7) 0.8 0.2-0.8 [facility] SystemAutomated blood eosinophil count 2020-03-05 06:20:00* Test Item Value Reference Range Interpretation Comments Eosinophils # (Auto) (test code = 711-2) 0.3 0.0-0.4 [facility] SystemAutomated blood basophil count (count/volume)2020-03-05 06:20:00* Test Item Value Reference Range Interpretation Comments Basophils # (Auto) (test code = 704-7) 0.1 0.0-0.1 [facility] SystemFluoroscopic procedure less than one hour fgzwldyb6633-34-30 06:20:00* Test Item Value Reference Range Interpretation Comments Absolute Immature Granulocyte (auto (iman t code = Absolute Immature Granulocyte (auto) 0.03 10*3/uL 0-0.1 [facility] or plasma sodium measurement (moles/volume)2020-03-05 06:20:00* Test Item Value Reference Range Interpretation Comments Sodium Level (test code = 2951-2) 140 mmol/L 136-145 [facility] Campuserum or plasma potassium measurement (moles/volume)2020-03-05 06:20:00* Test Item Value Reference Range Interpretation Comments Potassium Level (test code = 2823-3) 4.3 mmol/L 3.5-5.1 [facility] Campuserum or plasma chloride measurement (moles/volume)2020-03-05 06:20:00* Test Item Value Reference Range Interpretation Comments Chloride Level (test code = 2075-0) 111 mmol/L 98-107 [facility] Campuserum or plasma carbon dioxide, total measurement (moles/volume)2020-03-05 06:20:00* Test Item Value Reference Range Interpretation Comments Carbon Dioxide Level (test code = 2028-9) 19 mmol/L 22-29 [facility] Campuserum or plasma anion igm0418-96-85 06:20:00* Test Item Value Reference Range Interpretation Comments Anion Gap (test code = 99872-2) 14.3 mmol/L 8-16 [facility]um or plasma urea nitrogen measurement (mass/volume)2020-03-05 06:20:00* Test Item Value Reference Range Interpretation Comments Blood Urea Nitrogen (test code = 3094-0) 33 mg/dL 7-26 [facility] Camp[facility]um or plasma creatinine measurement (mass/volume)2020-03-05 06:20:00* Test Item Value Reference Range Interpretation Comments Creatinine (test code = 2160-0) 2.95 mg/dL 0.72-1.25 [facility] Campuserum or plasma urea nitrogen/creatinine mass eenxs6524-66-14 06:20:00* Test Item Value Reference Range Interpretation Comments BUN/Creatinine Ratio (test code = 3097-3) 11 6-25 [facility] SystemEstimated glomerular filtration rate (GFR) ppursoajsjdwu9616-58-50 06:20:00* Test Item Value Reference Range Interpretation Comments Estimat Glomerular Filtration Rate (test code = 540056805) 21 mL/mi n >60 Ranges were taken from the National Kidney Disease Education Program and the [facility] literature.Reference ranges:60 or greater: Tfvbyv98-23 ( for 3 consecutive months): Chronic kidney disease 15 or less: Kidney failureUnited Regional Healthcare SystemGlucose icpuxjwniun9410-03-19 06:20:00* Test Item Value Reference Range Interpretation Comments Glucose Level (test code = KCX5953) 58 mg/dL 74-118 Results repeated and called to FATEMEH BUCKRN at 0711 on 03/05/20 by Camilla Sharma. Read back and verified.[facility] Campuserum or plasma calcium measurement (mass/volume)2020-03-05 06:20:00* Test Item Value Reference Range Interpretation Comments Calcium Level (test code = 46468-7) 8.1 mg/dL 8.4-10.2 [facility] SystemAmmonia Lnb-xMsl2549-48-11 09:45:00* Test Item Value Reference Range Interpretation Comments Ammonia (test code = 84371-6) 60 ug/dL 31-123 [facility] Campuserum hepatitis B virus surface antibody assay by radioimmunoassay (units/volume)2020-03-04 05:30:00* Test Item Value Reference Range Interpretation Comments Hepatitis B Surface Antibody, Quant (test code = 5194-6) 12. 9 m[IU]/mL Immunity>9.9 Status of Immunity Anti-HBs Level Inconsistent with Immunity 0.0 - 9.9Consistent with Immunity >9.9[facility] or plasma hepatitis B virus core antibody detection by ugmakhlllwj9814-08-88 05:30:00* Test Item Value Reference Range Interpretation Comments Hepatitis B Core Total Antibody (test code = 98425-8) Positive Negative Results repeated and called to Diana Cullen RN at 0525 on 03/05/20 by Camilla lutz Read back and verified.Performed at: - [facility] [id number] Director: Kenji Yu MD, Phone: [phone] [facility] Campuserum or plasma total bilirubin measurement (mass/volume)2020-03-03 05:51:00* Test Item Value Reference Range Interpretation Comments Total Bilirubin (test code = 1975-2) 0.2 mg/dL 0.2-1.2 [facility] SystemFluoroscopic procedure less than one hour gzqpxhbs0411-65-75 05:51:00* Test Item Value Reference Range Interpretation Comments Aspartate Amino Transf (AST/SGOT) (test code = Aspartate Amino Transf (AST/SGOT)) 81 [IU]/L 5-34 [facility] Campuserum or plasma alanine aminotransferase measurement (enzymatic activity/volume)2020-03-03 05:51:00* Test Item Value Reference Range Interpretation Comments Alanine Aminotransferase (ALT/SGPT) (test code = 1742-6) 48 [IU]/L 0-55 [facility] Campuserum or plasma protein measurement (mass/volume)2020-03-03 05:51:00* Test Item Value Reference Range Interpretation Comments Total Protein (test code = 2885-2) 5.9 g/dL 6.5-8.1 [facility] Campuserum or plasma albumin measurement (mass/volume)2020-03-03 05:51:00* Test Item Value Reference Range Interpretation Comments Albumin (test code = 1751-7) 2.0 g/dL 3.5-5.0 [facility] SystemPlasma globulin measurement (mass/volume) 2020-03-03 05:51:00* Test Item Value Reference Range Interpretation Comments Globulin (test code = 39535-6) 3.9 g/dL 2.3-3.5 [facility] Campuserum or plasma albumin/globulin mass agnaj2742-88-35 05:51:00* Test Item Value Reference Range Interpretation Comments Albumin/Globulin Ratio (test code = 1759-0) 0.5 0.8-2.0 [facility] Campuserum or plasma alkaline phosphatase measurement (enzymatic activity/volume)2020-03-03 05:51:00* Test Item Value Reference Range Interpretation Comments Alkaline Phosphatase (test code = 6768-6) 115 [IU]/L 40-150 [facility] SystemUS RENAL RETROPERITONEAL DPRC8606-34-25 13:19:00[facility] 1950 Sex: M [facility] [address] [place] [address] Patient Name: MARILY RENTERIA MR #: [id number] : 1950 Age/Sex: 70/M Req #: [id number] Adm Physician: JUAN RIVERA MD Ordered by: CHERELLE KNUTSON, LILIAN KNUTSON Report #: [id number] [facility]: [facility] Room/Bed: [facility] Procedure: [id number] US/US RENAL RETROPERITONEAL COMP Exam Date: 03/02/20 Exam Time: 1249 REPORT STATUS: Signed EXAM: Renal Ultrasound INDICATION: Acute kidney injury COMPARISON: CT dated 02/29/2020 TECHNIQUE: T ransverse and longitudinal images of the kidneys and bladder were obtained. FINDINGS: Right Kidney: Length: 10.6 cm Appearance: Normal e chogenicity. Collecting system: No hydronephrosis Stones: None Cyst/Mass : None Left Kidney: Length: 11.0 cm Appearance: Normal echogenicity. Collecting system: No hydronephrosis Stones: None Cyst/Mass: None Bl adder: Patient emptied the bladder prior to examination. The jets are not wel l visualized, nonspecific. Prostate is not well visualized. IMPRESSION: Negative for hydronephrosis or obstructing calculus. Negative for perinephric fluid collection. Signed by: Chino Monte MD on 03/02/2020 1:21 PM D ictated By: CHINO MONTE MD 1321 COPY TO: LILIAN VILLARREAL Serum or plasma hepatitis C virus RNA detection by probe and target amplification gwxeqx4591-05-97 05:49:00* Test Item Value Reference Range Interpretation Comments Hepatitis C RNA Qualitative (PCR) (test code = 25069-7) Positive Negative Positive: HCV RNA DetectedPerformed at: [facility] [id number] Director: Steffany Glynn MD, Phone: [phone] [facility] Campuserum or plasma bplgv-5-znfcqzitvbh.tumor marker measurement (mass/volume)2020-03-02 05:49:00* Test Item Value Reference Range Interpretation Comments Alpha Fetoprotein (test code = 81425-9) 7.9 ng/mL 0.0-8.3 [facility] Electrochemiluminescence Immunoassay(ECLIA)Values obtained wit h different assay methods or kits cannotbe used interchangeably. Results cannot be interpreted asabsolute evidence of the presence or absence of malignantdisea se.This test is not interpretable in females.Performed at: - [facility] [address] [id number] Director: Kenji Yu MD, Phone: [phone] [facility] Campuserum or plasma folate measurement (mass/volume)2020-03-02 05:49:00* Test Item Value Reference Range Interpretation Comments Folate (test code = 2284-8) 19.5 ng/mL >3.0 A serum folate concentration of less than 3.1 ng/mL isconsidered to represent cl inical deficiency.[facility] SystemAutomated reticulocyte count as percentage of total hpplvwvqrcov2471-93-78 02:55:00* Test Item Value Reference Range Interpretation Comments Percent Reticulocyte Count (test code = 92454-0) 1.3 % 0.8-2 .2 [facility] Campuserum or plasma iron measurement (mass/volume)2020-03-02 02:55:00* Test Item Value Reference Range Interpretation Comments Iron Level (test code = 2498-4) 44 ug/dL 65-175 [facility] Campuserum or plasma iron binding capacity measurement (mass/volume)2020-03-02 02:55:00* Test Item Value Reference Range Interpretation Comments Total Iron Binding Capacity (test code = 2500-7) 340 ug/dL 261-4 78 [facility] Campuserum or plasma iron saturation measurement (mass fraction)2020-03-02 02:55:00* Test Item Value Reference Range Interpretation Comments Percent Iron Saturation (test code = 2502-3) 13 % 15-50 [facility] Campuserum or plasma transferrin measurement (mass/volume)2020-03-02 02:55:00* Test Item Value Reference Range Interpretation Comments Transferrin (test code = 3034-6) 243 mg/dL 174-364 [facility] Campuserum or plasma ferritin measurement (mass/volume)2020-03-02 02:55:00* Test Item Value Reference Range Interpretation Comments Ferritin (test code = 2276-4) 47.15 ng/mL 21.81-274.66 [facility] SystemBlood cobalamin (vitamin B12) measurement (mass/volume)2020-03-02 02:55:00* Test Item Value Reference Range Interpretation Comments Vitamin B12 Level (test code = 01866-9) 526 pg/mL 213-816 [facility] [place] [facility] or plasma triglyceride measurement (mass/volume)2020-03-01 07:05:00* Test Item Value Reference Range Interpretation Comments Triglycerides Level (test code = 2571-8) 187 mg/dL 0-149 [facility] [place] [facility] or plasma cholesterol measurement (mass/volume)2020-03-01 07:05:00* Test Item Value Reference Range Interpretation Comments Cholesterol Level (test code = 2093-3) 163 mg/dL 0-199 Less than 200 mg/dL Low Ymey827 - 239 mg/dL Borderline Wamf762 m g/dl and greater High Risk [facility] [place] [facility] or plasma cholesterol in LDL measurement (mass/volume) 2020-03-01 07:05:00* Test Item Value Reference Range Interpretation Comments LDL Cholesterol (test code = 2089-1) 96 mg/dL 60-130 [facility] [place] [facility] or plasma cholesterol in HDL measurement (mass/volume)2020-03-01 07:05:00* Test Item Value Reference Range Interpretation Comments HDL Cholesterol (test code = 2085-9) 30 mg/dL 40-60 [facility] [place] [facility] or plasma total cholesterol/cholesterol in HDL mass pynjf5910-20-00 07:05:00* Test Item Value Reference Range Interpretation Comments Cholesterol/HDL Ratio (test code = 9830-1) 5.4 3.9-4.7 [facility] [place] [facility] or plasma creatine kinase measurement (enzymatic activity/volume)2020-03-01 07:05:00* Test Item Value Reference Range Interpretation Comments Creatine Kinase (test code = 2157-6) 77 [IU]/L 30-200 [facility] [place] [facility] or plasma creatine kinase MB measurement (mass/volume)2020-03-01 07:05:00* Test Item Value Reference Range Interpretation Comments Creatine Kinase MB (test code = 58090-8) 5.00 ng/mL 0-5.0 [facility] SystemT[facility] I measurement by highly sensitive enzyme rlerazczdlw8492-21-83 07:05:00* Test Item Value Reference Range Interpretation Comments Troponin I (test code = 94837-3) 0.015 ng/mL 0-0.300 [facility] [place] [facility] or plasma hepatitis A virus IgM antibody detection by pvsuiixkmri9983-26-85 07:05:00* Test Item Value Reference Range Interpretation Comments Hepatitis A IgM Antibody (test code = 06286-5) Negative Negativ e [facility] [place] [facility] or plasma hepatitis B virus surface antigen detection by szjfjljxwse1053-83-82 07:05:00* Test Item Value Reference Range Interpretation Comments Hepatitis B Surface Antigen (test code = 5196-1) Negative Negat moramia [facility] [place] [facility] or plasma hepatitis B virus core IgM antibody detection by wblkvffkfpv7131-55-16 07:05:00* Test Item Value Reference Range Interpretation Comments Hepatitis B Core IgM Antibody (test code = 53121-4) Negative Ne gative [facility] [place] [facility] hepatitis C virus antibody dktsblnib1245-26-00 07:05:00* Test Item Value Reference Range Interpretation Comments Hepatitis C Antibody (test code = 90196-8) >11.0 0.0-0.9 Results repeated and called to CLEVE TUTTLE RN AND ANN PRASAD at 0931 on 03/03/20 by Camilla Sharma. Read back and verified. Negative: < 0.8 Indeterminate: 0.8 - 0.9 Positive: > 0.9 The CDC recommends that a positive HCV antibody result be followed up with a HCV Nucleic Acid Amplification test (873456).Performed at: [facility] Lab[address] [id number] Director: Kenji Yu MD, Phone: [phone] [facility] SystemCT ABDOMEN/PELVIS [id number] 12:25:00 [facility] : 1950 Sex: M* [facility] [address] [place] [address] Patient Name: MARILY RENTERIA MR #: [id number] : 1950 Age/Sex: 70/M Req #: [id number] Adm Physician: JUAN RIVERA MD Ordered by: SURINDER QUIROS MD Report #: [id number] Location: MED/SURG3 Room/Bed: [facility] Procedure: [id number] CT/CT ABDOMEN/PELVIS WO Exam Chet e: 02/29/20 Exam Time: 1140 REPORT STATUS: Signed CT chest, abdomen and pelvis witho ut intravenous contrast Indication: Shortness of breath, abdominal swelling ABNORMAL X-RAY Technique: Thin collimation axial images obtained from t he thoracic inlet to the level of the pubic symphysis without intravenous or o ral contrast. RADIATION DOSE: Total DLP: 1631.25 mGy*cm E stimated effective dose: (DLP x 0.015 x size factor) mSv CTDIvol has been reviewed. It is below the limits set by the Radiation Protocol Committee (RPC ). Dose reduction techniques used: Automated exposure control, adjustment o f the mAs and/or kVp according to patient size, standardized low-dose protocol , and/or iterative reconstruction technique. Comparison: Chest x-ray 1129 hours, CT chest 09/11/2019. CHEST FINDINGS: Lymph nodes: Prominent rig ht axillary lymph node measures 1.3 cm (previously, 1.5 cm). No enlarged left axillary lymph nodes. No enlarged supraclavicular, mediastinal, or hilar lymph nodes Thyroid: Visualized portions are normal. Mediastinum: The heart is enlarged. No pericardial effusion. Stable cardiac bypass changes. The main pulmonary artery measures 3.37 m in diameter. Lungs: Right Lung: Mil d hyperinflation. No mass or infiltrate. Left Lung: Mild hyperinflation. St able chronic atelectasis/scar in the upper lobe and lingula. Mild basilar atel ectasis. Mild tracheobronchomalacia. Pleura: Posterior left pleural ef fusion measures 1.1 cm. No pneumothorax ABDOMEN FINDINGS: Liver: Lobu lated contours. No evidence for mass. Gallbladder: Absent. No biliary ducta l dilatation. Pancreas: Normal attenuation without mass or ductal dilatatio n. Spleen: Normal in size without mass. Adrenal Glands: No evidence fo r mass. Kidneys: Right: No calculus or cortical mass. No hydronephros is. Left: No calculus or cortical mass. No hydronephrosis. Lymph Node s: No enlarged abdominal or periaortic lymph nodes. Aorta: Normal in diamet er and diffusely calcified. PELVIS FINDINGS: Bowel: Stomach: Conta ins food. No focal mural thickening. Small Bowel: Normal in caliber with nor mal wall thickness. Large Bowel: Diverticulosis coli. No associated inflamma tion. No focal thickening. Mild to moderate burden of stool in the right colon . Appendix: Not visualized. Bladder: Mildly underdistended. Prostate gl and and seminal vesicles appear normal. Lymph Nodes: No enlarged mesenter ic, pelvic, or inguinal lymph nodes. Peritoneum/retroperitoneum: Small volu me of abdominal ascites without loculation. Small volume pelvic ascites withou t loculation Bones: Degenerative changes of the spine, most significant at L4-5. There is a subcentimeter bone island in the roof of the right acetabulum . Soft tissues: Mild subcutaneous edema of the flanks. IMPRESSION: 1. Small left pleural effusion and basilar atelectasis. Chronic atelectasis /scarring in the left upper and lower lobes. 2. Stable cardiomegaly. No ev idence of CHF. 3. Lobulated hepatic contours suggestive of cirrhosis. No sp lenomegaly. Small volume ascites. 4. Status post cholecystectomy. No bile duct dilatation. 5. Diverticulosis coli. No evidence for bowel obstruction or inflammation. Signed by: Dr. Abhay Calle MD on 02/29/2020 12:44 P M Dictated By: ABHAY CALLE MD 1244 Transcribed By: EARLINE on 02/29/20 1244 COPY TO: SURINDER QUIROS MD CT CHEST [id number] 12:25:00 [facility] : 1950 [facility] [address] [place] [address] [place] [address] Patient Name: MARILY RENTERIA MR #: [id number] : 1950 Age/Sex: 70/M Req #: [id number] [facility] Physician: JUAN RIVERA MD Ordered by: SURINDER QUIROS MD Report #: [id number] Location: [facility]/SURG3 Room/Bed: [facility] Procedure: [id number] CT/CT CHEST WO Exam Date: Exam Time: 1140 REPORT STATUS: Signed CT chest, abdomen and pelvis without intrav enous contrast Indication: Shortness of breath, abdominal swelling ABNOR MAL X-RAY Technique: Thin collimation axial images obtained from the thorac ic inlet to the level of the pubic symphysis without intravenous or oral contr ast. RADIATION DOSE: Total DLP: 1631.25 mGy*cm Estimated effective dose: (DLP x 0.015 x size factor) mSv CTDIvol has been reviewed . It is below the limits set by the Radiation Protocol Committee (RPC). D ose reduction techniques used: Automated exposure control, adjustment of the m As and/or kVp according to patient size, standardized low-dose protocol, and/o r iterative reconstruction technique. Comparison: Chest x-ray 1129 hours, C T chest 09/11/2019. CHEST FINDINGS: Lymph nodes: Prominent right axilla ry lymph node measures 1.3 cm (previously, 1.5 cm). No enlarged left axillary lymph nodes. No enlarged supraclavicular, mediastinal, or hilar lymph nodes Thyroid: Visualized portions are normal. Mediastinum: The heart is enlar ged. No pericardial effusion. Stable cardiac bypass changes. The main pulmonar y artery measures 3.37 m in diameter. Lungs: Right Lung: Mild hyperin flation. No mass or infiltrate. Left Lung: Mild hyperinflation. Stable synchronizer apolonia atelectasis/scar in the upper lobe and lingula. Mild basilar atelectasis. Mild tracheobronchomalacia. Pleura: Posterior left pleural effusion me asures 1.1 cm. No pneumothorax ABDOMEN FINDINGS: Liver: Lobulated con tours. No evidence for mass. Gallbladder: Absent. No biliary ductal dilatat ion. Pancreas: Normal attenuation without mass or ductal dilatation. S pleen: Normal in size without mass. Adrenal Glands: No evidence for mass. Kidneys: Right: No calculus or cortical mass. No hydronephrosis. Left: No calculus or cortical mass. No hydronephrosis. Lymph Nodes: No enl arged abdominal or periaortic lymph nodes. Aorta: Normal in diameter and di ffusely calcified. PELVIS FINDINGS: Bowel: Stomach: Contains food. No focal mural thickening. Small Bowel: Normal in caliber with normal wall thickness. Large Bowel: Diverticulosis coli. No associated inflammation. No focal thickening. Mild to moderate burden of stool in the right colon. Mabel endix: Not visualized. Bladder: Mildly underdistended. Prostate gland and s eminal vesicles appear normal. Lymph Nodes: No enlarged mesenteric, pelvi c, or inguinal lymph nodes. Peritoneum/retroperitoneum: Small volume of abd ominal ascites without loculation. Small volume pelvic ascites without loculat ion Bones: Degenerative changes of the spine, most significant at L4-5. The re is a subcentimeter bone island in the roof of the right acetabulum. So ft tissues: Mild subcutaneous edema of the flanks. IMPRESSION: 1. Sma ll left pleural effusion and basilar atelectasis. Chronic atelectasis/scarring in the left upper and lower lobes. 2. Stable cardiomegaly. No evidence of CHF. 3. Lobulated hepatic contours suggestive of cirrhosis. No splenomegal y. Small volume ascites. 4. Status post cholecystectomy. No bile duct dil atation. 5. Diverticulosis coli. No evidence for bowel obstruction or infla mmation. Signed by: Dr. Abhay Calle MD on 02/29/2020 12:44 PM Dictated By: ABHAY CALLE MD 1246 Transcribed By: EARLINE on 02/29/20 1244 COPY TO: SURINDER JUARES MD CHEST SINGLE (PORTABLE)2020-02-29 12:08:00 [facility] : 1950 Sex: M* [facility] [address] [facility], [place] [address] Patient Name: MARILY RENTERIA MR #: [id number] : 1950 Age/Sex: 70/M Req #: [id number] Adm Physician: JUAN RIVERA MD Ordered by: SURINDER QUIROS MD Report #: [id number] Location: [facility] Room/Bed: [facility] Procedure: [id number] DX/CHEST SINGLE (PORTABLE) Exam Date: 02/29/20 Exam Time: 1129 REPORT STATUS: Signed EXAMINATION: CHEST SINGLE (PORT ABLE) COMPARISON: Chest x-ray 10/01/2019 INDICATION: sob DISCUSSION: Frontal view of the chest obtained at 1129 hours. HEART AND M EDIASTINUM: Stable cardiomegaly and cardiac bypass changes LINES: None. LUNGS: Stable mild hyperinflation. No interstitial edema. No vascular c ongestion. No infiltrates. PLEURA: No pleural effusion or pneumothorax. BONES AND SOFT TISSUES: Median sternotomy wires are intact. The soft tissues are normal. IMPRESSION: Stable cardiomegaly without vascular conge stion. Pulmonary hyperinflation suggestive of small airways disease. No acute pulmonary process. Signed by: Dr. Abhay Calle MD on 02/29/2020 12:09 PM Dictated By: ABHAY CALLE MD 08 Transcribed By: EARLINE on 02/29/201208 GLOBAL PRESIDENT Y TO: SURINDER QUIROS MD CT BRAIN [id number] 12:06:00 [facility] : 1950 Sex: M* [place] [address] Patient Name: MARILY RENTERIA MR #: [id number] : 1950 Age/Sex: 70/M Req #: [id number] [facility] Physician: JUAN RIVERA MD Ordered by: SURINDER QUIROS MD Report #: [id number] Location: [facility] Room/Bed: [place] [address] Procedure: [id number] CT/CT BRAIN WO Exam Date: Exam Time: 1130 REPORT STATUS: Signed Examination: CT BRAIN WO History:Headac he Comparison studies:None Technique: Axial images were obtained from [facility] skull base to the vertex. Coronal and sagittal images reconstructed from e axial data. Dose modulation, iterative reconstruction, and/or weight based a djustment of the mA/kV was utilized to reduce the radiation dose to as low as reasonably achievable. Intravenous contrast: None Findings: Scalp : No abnormalities. Bones: No fractures, blastic or lytic lesions. Brain sulci: Mild age-appropriate volume loss. Ventricles: Normal in size and config uration. No hydrocephalus. Extra-axial space: No abnormalities. Pare nchyma: There are patchy areas of hypoattenuation in the periventricular and subcortical white matter, nonspecific. No masses, hemorrhage, or acute or c hronic cortical based vascular insults. Sellar/suprasellar region: No abnor malities. Craniocervical junction: Patent foramen magnum. No Chiari one malfor mation. Incidental findings: Calcification of the extradural left verteb ral artery. Impression: No acute intracranial abnormalities. Mil d chronic microvascular ischemic change. Preliminary report provided by Dr. Johann Dunbar, neuroradiology fellow, on 02/29/2020 at 1407 hours. [facility] images and preliminary report were reviewed and signed by Dr. Lazara luevano, neuroradiology faculty, on 02/29/2020 at 1505 hours. Signed by: Dr. Lazara Molina M.D. on 02/29/2020 3:05 PM Dictated By: LAZARA HERNANDEZ MD 1 505 Transcribed By: EARLINE on 02/29/20 1505 COPY TO: SURINDER QUIROS MD Blood [id number] 12:05:00* Test Item Value Reference Range Interpretation Comments Blood Culture (test code = 29277609) NO GROWTH AFTER 5 DAYS, FINAL REPORT [facility] SystemFluoroscopic procedure less than one hour ferpnmih4330-95-98 10:58:00* Test Item Value Reference Range Interpretation Comments Coronavirus (PCR) (test code = Coronavirus (PCR)) NOT DETECTED NOTD ETECTED SARS-CoV-2 PCRHologic Aptima SARS-CoV-2 assay is a nucleic amplification test in tended for the qualitative detection of RNA from SARS-CoV-2 from nasopharyngeal ([employer]) specimens. It is used under Emergency Use Authorization (EUA) by FDA.A posi tive result is indicative of the presence of SARS-CoV-2 RNA. Clinical correlatio n with patient history and other diagnostic information is necessary to determin e patient infection status.A negative (Not Detected) result does not preclude SA RS-CoV-2 infection. Clinical Correlation with patient history and other diagnost ic information should be used in patient management decisions.Invalid: Unable to generate a valid result on this specimen. Please submit a new specimen for repr at testing oc clinically indicated.Tesing performed by:[facility] Laboratory Services[address] [place] [address] [id number], Vince costa MD, PhDUnited [facility] Healthcare SystemProthrombin time (PT) in platelet poor plasma by coagulation [id number] 10:50:00* Test Item Value Reference Range Interpretation Comments Prothrombin Time (test code = 5902-2) 12.8 s 11.9-14.5 [facility] SystemINR in Platelet poor plasma by Coagulation jbqwl1083-90-93 10:50:00* Test Item Value Reference Range Interpretation Comments Prothromb Time International Ratio (test code = 6301-6) 0.92 Oral Anticoagulant Therapy INR Values:1. Low Intensity Therapy 1.5 - 2.02 . Moderate Intensity Therapy 2.0 - 3.03. High Intensity Therapy(1) 2.5 - 3. 54. High Intensity Therapy(2) 3.0 - 4.05. Panic Value INR > 5.0 [facility] SystemActivated partial thromboplastin time (aPTT) in platelet poor plasma by coagulation twwbm9645-34-34 10:50:00* Test Item Value Reference Range Interpretation Comments Activated Partial Thromboplast Time (test code = 68409-5) 30.4 s 23.8-35.5 [facility] SystemUrine color bnhlzpkzgurzr7311-91-05 10:50:00* Test Item Value Reference Range Interpretation Comments Urine Color (test code = 5778-6) YELLOW YELLOW [facility] SystemUrine lozhboz9895-39-67 10:50:00* Test Item Value Reference Range Interpretation Comments Urine Clarity (test code = 24135-2) HAZY CLEAR [facility] [place] [facility] Campuspecific gravity of Urine by Test strip 2020-02-29 10:50:00* Test Item Value Reference Range Interpretation Comments Urine Specific [place] (test code = 5811-5) >=1.030 1.010-1.02 5 [facility] SystemUrine pH measurement by automated test gqytn2782-43-46 10:50:00* Test Item Value Reference Range Interpretation Comments Urine pH (test code = 39736-8) 5.5 5-7 [facility] SystemUrine leukocyte esterase detection by lkrbervd5831-24-61 10:50:00* Test Item Value Reference Range Interpretation Comments Urine Leukocyte Esterase (test code = 5799-2) NEGATIVE NEGATIVE [facility] SystemUrine nitrite fnjfoqagg2903-95-40 10:50:00* Test Item Value Reference Range Interpretation Comments Urine Nitrite (test code = 37599-8) NEGATIVE NEGATIVE [facility] SystemUrine protein measurement by test strip (mass/volume)2020-02-29 10:50:00* Test Item Value Reference Range Interpretation Comments Urine Protein (test code = 5804-0) >=300 NEGATIVE [facility] SystemUrine glucose pajgrqtzw2077-83-42 10:50:00* Test Item Value Reference Range Interpretation Comments Urine Glucose (UA) (test code = 2349-9) 1+ NEGATIVE [facility] SystemUrine ketones detection by automated test qsrsy2008-95-71 10:50:00* Test Item Value Reference Range Interpretation Comments Urine Ketones (test code = 22073-1) NEGATIVE NEGATIVE [facility] SystemUrine urobilinogen measurement by test strip (mass/volume)2020-02-29 10:50:00* Test Item Value Reference Range Interpretation Comments Urine Urobilinogen (test code = 09655-8) 0.2 mg/dL 0.2-1 [facility] SystemUrine total bilirubin measurement (mass/volume)2020-02-29 10:50:00* Test Item Value Reference Range Interpretation Comments Urine Bilirubin (test code = 1978-6) SMALL NEGATIVE [facility] SystemUrine erythrocytes bhmsmuzix8861-54-36 10:50:00* Test Item Value Reference Range Interpretation Comments Urine Blood (test code = 37854-3) SMALL NEGATIVE [facility] SystemAutomated urine sediment leukocyte count by microscopy (number/high power field)2020-02-29 10:50:00* Test Item Value Reference Range Interpretation Comments Urine WBC (test code = 5821-4) 0-5 /[HPF] 0-5 [facility] SystemErythrocytes detection in urine sediment by light ttbhqstqjd4017-20-02 10:50:00* Test Item Value Reference Range Interpretation Comments Urine RBC (test code = 90512-4) 6-10 /[HPF] 0-5 [facility] SystemBacteria detection in urine sediment by light rvqfvdynit7322-44-50 10:50:00* Test Item Value Reference Range Interpretation Comments Urine Bacteria (test code = 08439-9) MODERATE /[HPF] NONE [facility] SystemEpithelial cells detection in urine sediment by light aaeyjjytsa4010-73-96 10:50:00* Test Item Value Reference Range Interpretation Comments Urine Epithelial Cells (test code = 80651-5) FEW /[LPF] NONE [facility] SystemAmorphous sediment detection in urine sediment by light ztvuxnyyeo2634-20-03 10:50:00* Test Item Value Reference Range Interpretation Comments Urine Amorphous Sediment (test code = 8246-1) FEW FEW [facility] SystemHyaline casts detection in urine sediment by light jlfpngfqry7262-95-03 10:50:00* Test Item Value Reference Range Interpretation Comments Urine Hyaline Casts (test code = 68188-4) 2-5 0-1 [facility] SystemBNP Xol-pJqa4027-45-07 10:50:00* Test Item Value Reference Range Interpretation Comments B-Type Natriuretic Peptide (test code = 18334-1) 1118.6 pg/mL 0-100 [facility] SystemFree thyroxine nzhfi8850-48-99 10:50:00* Test Item Value Reference Range Interpretation Comments Free Thyroxine Index (test code = 94714-3) 1.7523 1.4-3.8 [facility] [place] [facility]userum or plasma thyroxine (T4) measurement (mass/volume)2020-02-29 10:50:00* Test Item Value Reference Range Interpretation Comments Thyroxine (T4) (test code = 3026-2) 8.59 ug/dL 4.5-10.9 [facility] [place] [facility] Campuserum or plasma triiodothyronine resin uptake (T3RU)2020-02-29 10:50:00* Test Item Value Reference Range Interpretation Comments Triiodothyronine (T3) Uptake (test code = 3050-2) 20.40 % 22.5 -37.0 [facility] [place] [facility] Campuserum or plasma thyrotropin measurement by detection limit <= 0.005 miu/l (units/volume)2020-02-29 10:50:00* Test Item Value Reference Range Interpretation Comments Thyroid Stimulating Hormone (TSH) (test code = 43260-5) 15.617 0.350-4.940 [facility] [place] [facility] Campuserum or plasma triiodothyronine (T3) free measurement (mass/volume)2020-02-29 10:50:00* Test Item Value Reference Range Interpretation Comments Free Triiodothyronine (test code = 3051-0) 2.7 pg/mL 2.0-4.4 Performed at: [facility] Lab[address] [id number] Director: Kenji Yu MD, Phone: [phone] Coronavirus 2019 Mdhqngp4197-29-58 00:27:00* Test Item Value Reference Range Interpretation Comments Novel Coronavirus 2019 Inhouse (test code = COVNONPUI) Negative Negative Novel Coronavirus 2019 Wptkrsu7050-14-31 00:27:00* Test Item Value Reference Range Interpretation Comments Novel Coronavirus 2019 Inhouse (test code = COVNONPUI) Negative Negative Capillary blood glucose measurement by glucometer (mass/volume)2019-10-03 15:05:00* Test Item Value Reference Range Interpretation Comments Bedside Glucose (test code = 98624-9) 281 70-120 Meter ID: [id number] Regional Healthcare SystemBlood leukocytes automated count (number/volume)2019-10-02 05:20:00* Test Item Value Reference Range Interpretation Comments White Blood Count (test code = 6690-2) 3.77 4.8-10.8 [facility] SystemBlood erythrocytes automated count (number/volume)2019-10-02 05:20:00* Test Item Value Reference Range Interpretation Comments Red Blood Count (test code = 789-8) 3.69 4.3-5.7 [facility] Centerood [facility] (moles/volume)2019-10-02 05:20:00* Test Item Value Reference Range Interpretation Comments Hemoglobin (test code = 11343-2) 11.8 14.0-18.0 [facility] SystemAutomated blood hematocrit (volume fraction)2019-10-02 05:20:00* Test Item Value Reference Range Interpretation Comments Hematocrit (test code = 4544-3) 34.2 38.2-49.6 [facility] SystemAutomated erythrocyte mean corpuscular xfpdhv9751-45-60 05:20:00* Test Item Value Reference Range Interpretation Comments Mean Corpuscular Volume (test code = 787-2) 92.7 81-99 [facility] SystemAutomated erythrocyte mean corpuscular hemoglobin (mass per erythrocyte)2019-10-02 05:20:00* Test Item Value Reference Range Interpretation Comments Mean Corpuscular Hemoglobin (test code = 785-6) 32.0 28-32 [facility] SystemAutom[facility] erythrocyte mean corpuscular hemoglobin concentration measurement (mass/volume)2019-10-02 05:20:00* Test Item Value Reference Range Interpretation Comments Mean Corpuscular Hemoglobin Concent (test code = 786-4) 34.5 31-35 [facility] SystemRDW RqsKe-Rug2734-96-10 05:20:00* Test Item Value Reference Range Interpretation Comments Red Cell Distribution Width (test code = 44375-2) 12.4 11.7 -14.4 [facility] SystemAutom[facility] blood platelet count (count/volume)2019-10-02 05:20:00* Test Item Value Reference Range Interpretation Comments Platelet Count (test code = 777-3) 115 140-360 [facility] SystemAutom[facility] blood segmented neutrophil count as percentage of total yxrzmpwzrg9542-52-40 05:20:00* Test Item Value Reference Range Interpretation Comments Neutrophils (%) (Auto) (test code = 43723-2) 47.5 38.7-80.0 [facility] SystemAut[facility] blood lymphocyte count as percentage ot total reyryfgcoe4032-57-78 05:20:00* Test Item Value Reference Range Interpretation Comments Lymphocytes (%) (Auto) (test code = 736-9) 35.0 18.0-39.1 [facility] SystemAutom[facility] blood monocyte count as percentage of total ckpzqlsjmk5014-69-96 05:20:00* Test Item Value Reference Range Interpretation Comments Monocytes (%) (Auto) (test code = 5905-5) 12.5 4.4-11.3 [facility] blood eosinophil count as percentage of total hkwgjvspsg9447-09-50 05:20:00* Test Item Value Reference Range Interpretation Comments Eosinophils (%) (Auto) (test code = 713-8) 3.7 0.0-6.0 [facility]Aut[facility] blood basophil count as percentage of total zgpcpnanki4111-59-39 05:20:00* Test Item Value Reference Range Interpretation Comments Basophils (%) (Auto) (test code = 706-2) 0.8 0.0-1.0 [facility] SystemFluoroscopic procedure less than one hour dcfravde8488-15-77 05:20:00* Test Item Value Reference Range Interpretation Comments IM GRANULOCYTES % (test code = IM GRANULOCYTES %) 0.5 0.0- 1.0 [facility] SystemAutom[facility] blood neutrophil count 2019-10-02 05:20:00* Test Item Value Reference Range Interpretation Comments Neutrophils # (Auto) (test code = 751-8) 1.8 2.1-6.9 [facility] SystemBlood lymphocytes count (number/volume) 2019-10-02 05:20:00* Test Item Value Reference Range Interpretation Comments Lymphocytes # (Auto) (test code = 65618-1) 1.3 1.0-3.2 [facility] SystemBlood monocytes automated count (number/volume)2019-10-02 05:20:00* Test Item Value Reference Range Interpretation Comments Monocytes # (Auto) (test code = 742-7) 0.5 0.2-0.8 [facility] SystemAutomated blood eosinophil count 2019-10-02 05:20:00* Test Item Value Reference Range Interpretation Comments Eosinophils # (Auto) (test code = 711-2) 0.1 0.0-0.4 [facility] SystemAutomated blood basophil count (count/volume)2019-10-02 05:20:00* Test Item Value Reference Range Interpretation Comments Basophils # (Auto) (test code = 704-7) 0.0 0.0-0.1 [facility] SystemFluoroscopic procedure less than one hour lhkctmuz0012-51-18 05:20:00* Test Item Value Reference Range Interpretation Comments Absolute Immature Granulocyte (auto (iman t code = Absolute Immature Granulocyte (auto) 0.02 0-0.1 [facility] or plasma sodium measurement (moles/volume)2019-10-02 05:20:00* Test Item Value Reference Range Interpretation Comments Sodium Level (test code = 2951-2) 140 136-145 [facility] Campuserum or plasma potassium measurement (moles/volume)2019-10-02 05:20:00* Test Item Value Reference Range Interpretation Comments Potassium Level (test code = 2823-3) 4.1 3.5-5.1 [facility] Campuserum or plasma chloride measurement (moles/volume)2019-10-02 05:20:00* Test Item Value Reference Range Interpretation Comments Chloride Level (test code = 2075-0) 111 98-107 [facility] Campuserum or plasma carbon dioxide, total measurement (moles/volume)2019-10-02 05:20:00* Test Item Value Reference Range Interpretation Comments Carbon Dioxide Level (test code = 2028-9) 19 22-29 [facility] Campuserum or plasma anion jfl6676-84-78 05:20:00* Test Item Value Reference Range Interpretation Comments Anion Gap (test code = 49934-5) 14.1 8-16 [facility]userum or plasma urea nitrogen measurement (mass/volume)2019-10-02 05:20:00* Test Item Value Reference Range Interpretation Comments Blood Urea Nitrogen (test code = 3094-0) 25 7-26 [facility]um or plasma creatinine measurement (mass/volume)2019-10-02 05:20:00* Test Item Value Reference Range Interpretation Comments Creatinine (test code = 2160-0) 1.58 0.72-1.25 [facility]um or plasma urea nitrogen/creatinine mass ulgmy5340-80-90 05:20:00* Test Item Value Reference Range Interpretation Comments BUN/Creatinine Ratio (test code = 3097-3) 16 6-25 [facility] SystemEstimated glomerular filtration rate (GFR) fyhehcnwoecak3693-75-69 05:20:00* Test Item Value Reference Range Interpretation Comments Estimat Glomerular Filtration Rate (test code = 038268277) 44 >60 Ranges were taken from the National Kidney Disease Education Program and the [facility] literature.Reference ranges:60 or greater: Brgxja35-14 ( for 3 consecutive months): Chronic kidney disease 15 or less: Kidney failureUnited Regional Healthcare SystemGlucose hrqnakydgxe5765-46-48 05:20:00* Test Item Value Reference Range Interpretation Comments Glucose Level (test code = HMN4141) 164 74-118 [facility]userum or plasma calcium measurement (mass/volume)2019-10-02 05:20:00* Test Item Value Reference Range Interpretation Comments Calcium Level (test code = 97379-8) 8.5 8.4-10.2 [facility]userum or plasma total bilirubin measurement (mass/volume)2019-10-02 05:20:00* Test Item Value Reference Range Interpretation Comments Total Bilirubin (test code = 1975-2) 0.4 0.2-1.2 [facility] SystemFluoroscopic procedure less than one hour jssttzxp1113-39-37 05:20:00* Test Item Value Reference Range Interpretation Comments Aspartate Amino Transf (AST/SGOT) (test code = Aspartate Amino Transf (AST/SGOT)) 142 5-34 [facility]um or plasma alanine aminotransferase measurement (enzymatic activity/volume)2019-10-02 05:20:00* Test Item Value Reference Range Interpretation Comments Alanine Aminotransferase (ALT/SGPT) (test code = 1742-6) 110 0-55 [facility]um or plasma protein measurement (mass/volume)2019-10-02 05:20:00* Test Item Value Reference Range Interpretation Comments Total Protein (test code = 2885-2) 6.2 6.5-8.1 [facility]um or plasma albumin measurement (mass/volume)2019-10-02 05:20:00* Test Item Value Reference Range Interpretation Comments Albumin (test code = 1751-7) 2.6 3.5-5.0 [facility] SystemPlasma globulin measurement (mass/volume) 2019-10-02 05:20:00* Test Item Value Reference Range Interpretation Comments Globulin (test code = 46967-2) 3.6 2.3-3.5 [facility]um or plasma albumin/globulin mass jyrxb4854-31-47 05:20:00* Test Item Value Reference Range Interpretation Comments Albumin/Globulin Ratio (test code = 1759-0) 0.7 0.8-2.0 [facility]um or plasma alkaline phosphatase measurement (enzymatic activity/volume)2019-10-02 05:20:00* Test Item Value Reference Range Interpretation Comments Alkaline Phosphatase (test code = 6768-6) 78 40-150 [facility]um or plasma creatine kinase measurement (enzymatic activity/volume)2019-10-02 05:20:00* Test Item Value Reference Range Interpretation Comments Creatine Kinase (test code = 2157-6) 93 30-200 [facility] Campuserum or plasma creatine kinase MB measurement (mass/volume)2019-10-02 05:20:00* Test Item Value Reference Range Interpretation Comments Creatine Kinase MB (test code = 39320-7) 3.70 0-5.0 [facility] SystemTroponin I measurement by highly sensitive enzyme wostpaeugof0285-18-31 05:20:00* Test Item Value Reference Range Interpretation Comments Troponin I (test code = 59186-5) 0.028 0-0.300 [facility] SystemCHEST SINGLE (PORTABLE)2019-10-01 20:16:00 [place] [address] Patient Name: MARILY RENTERIA MR #: [id number] : 1950 Age/Sex: 69/M Req #: [id number] Adm Physician: JUAN RIVERA MD Ordered by: SURINDER QUIROS MD Report #: [id number] Location: MED/SURG Room/Bed: [facility] Procedure: [id number] DX/CHEST SIN GLE (PORTABLE) Exam Date: 10/01/19 Exam Time: 1948 REPORT STATUS: Signed EXAMINATION : CHEST SINGLE (PORTABLE) INDICATION: CP COMPARISON : CT chest 09/11/2019 FINDINGS: AP view TUBES and LINES: Non e. LUNGS: Lungs are well inflated. Mild central pulmonary vascular conges tion. Scarring in the lingula is unchanged. PLEURA: No pleural effusio n or pneumothorax. HEART AND MEDIASTINUM: Mild enlargement of the cardiac silhouette. BONES AND SOFT TISSUES: Intact median sternotomy wires. Sof t tissues are unremarkable. UPPER ABDOMEN: No free air under the diaphrag m. IMPRESSION: Mild central pulmonary vascular congestion. S igned by: Dr. Asuncion Muro M.D. on 10/01/2019 8:17 PM Dictated By: ASUNCION MURO MD 16 Transcribed By: EARLINE on 10/01/192016 COPY TO: SURINDER QUIROS MD Serum or plasma lipase measurement (enzymatic activity/volume)2019-10-01 19:56:00* Test Item Value Reference Range Interpretation Comments Lipase (test code = 3040-3) 39 U/L 8 [facility] SystemProthrombin time (PT) in platelet poor plasma by coagulation ujovl3152-18-31 18:56:00* Test Item Value Reference Range Interpretation Comments Prothrombin Time (test code = 5902-2) 12.5 11.9-14.5 [facility] SystemINR in Platelet poor plasma by Coagulation ukhhs4744-91-53 18:56:00* Test Item Value Reference Range Interpretation Comments Prothromb Time International Ratio (test code = 6301-6) 0.88 Oral Anticoagulant Therapy INR Values:1. Low Intensity Therapy 1.5 - 2.02 . Moderate Intensity Therapy 2.0 - 3.03. High Intensity Therapy(1) 2.5 - 3. 54. High Intensity Therapy(2) 3.0 - 4.05. Panic Value INR > 5.0 [facility] SystemActivated partial thromboplastin time (aPTT) in platelet poor plasma by coagulation xpqpn8238-01-64 18:56:00* Test Item Value Reference Range Interpretation Comments Activated Partial Thromboplast Time (test code = 37668-7) 29.7 23.8-35.5 [facility] Ugm-cFxu4301-24-09 18:56:00* Test Item Value Reference Range Interpretation Comments B-Type Natriuretic Peptide (test code = 57140-5) 47.0 0-100 [facility] or plasma lipase measurement (enzymatic activity/volume)2019-10-01 18:56:00* Test Item Value Reference Range Interpretation Comments Lipase (test code = 3040-3) 39 [facility] SystemCT CHEST [id number] 11:45:00 [place] [address] Patient Name: MARILY RENTERIA MR #: [id number] : 1950 Age/Sex: 69/M Req #: [id number] Adm Physician: Ordered by: ELSY YAO DO Report #: [id number] Location: CT Room/Bed: Procedure: CT/CT CHEST W Exam Date: 09/11/19 Exam Time: 1045 REPORT STATUS: Signed CT of the chest. Co mparison: None Clinical History: Abnormal chest x-ray Technique: Katy terri CT scan of the chest was performed from just above the thoracic inlet thro ugh the adrenal glands. Intravenous contrast administration was utilized. Co jacki and sagittal reconstructions were generated from the raw data. Multiple images were submitted for interpretation. This exam was performed accordin g to our departmental dose-optimization program which includes automated expos ure control, adjustment of the mA and/or kV according to patient size Di scussion: Lung lopez: Minimal interstitial and airspace type opacity invol ving the left upper lobe in a subsegmental fashion. There is also suggestion o f subsegmental atelectasis involving the lingular lobe. This could be the resi yvette of a resolving infection or inflammation. Central airways: Unremarkable Pleural spaces and pleura: Unremarkable Pulmonary digna: Normal Mediastin um: Status post median sternotomy and CABG. Cardiac chambers and pericardium: Unremarkable Systemic great vessels: Minimal atherosclerosis of aorta and i ts major branches. Central pulmonary vessels: Unremarkable Thyroid: Unre markable Lymph nodes: No lymphadenopathy Azygos vein: Unremarkable The e sophagus: Normal. Thoracic duct: Unremarkable Osseous structures: Unremarka ble Upper abdomen: Status post cholecystectomy. Mild prominence of the commo n bile duct at 9 mm but considered within normal limits for this age group. Th e left kidney is not visualized. Clinical correlation is requested. Body wal l: 15 mm right axillary lymph node with a low density center. Probably benign. Breasts: Unremarkable Axilla: Unremarkable Lower neck: Minimal atheroscle rotic calcification of the left common carotid artery. Impression: Minimal interstitial and groundglass disease involving the left upper lobe could repr esent resolving inflammation/infection. Signed by: Jatinder Crook MD on 08/23 11:54 AM Dictated By: JATINDER CROOK MD 1154 Transcribed By: EARLINE on 09/11/19 1154 COPY TO: ELSY YAO DO Fluoroscopic procedure less than one hour dccxhrsn9285-81-08 09:43:00* Test Item Value Reference Range Interpretation Comments Coronavirus (PCR) (test code = Coronavirus (PCR)) NOT DETECTED NOTD ETECTED SARS-COV-2 (COVID19), HIGHRISK, RT-PCRNegative results do not preclude SARS-CoV- 2 infection and should not be used as the sole basis for patient management deci sions. Negative results must be combined with clinical observations, patient his tory, and epidemiological information. Optimum specimen types and timing for pea k viral levels during infections caused by SARS-CoV-2 have not been determined. Collection of multiple specimens ot types of specimens may be necessary to detec t virus. Improper specimen collection and handling, sequence variability under p rimers/probes, or organism present below the limit of detection may lead to fals e negative results. Positive and negative predictive values of testing are highl y dependent on prevalance. False negative test results are more likely when prev alence is high.The expected result is negative (not detected).The SARS-CoV-2 iman t is intended for the qualitative detection of nucleic acid from SARS-CoV-2 in n asopharyngeal and oropharyngeal swab samples from patients who meet COVID-19 cli nical and or epidemiological criteria. For lower respiratory tract specimens, th e assay is submitted for authoriztion by FDA under an Emergency Use Authorizatio n (EUA). Testing methodology is real time RT-PCR. If received as separate collec tion devices, nasopharygeal and oropharyngeal specimens are combined for analysi s. Additional specimens may be split to a separate accession for analysi and rep orting as this test includes a single unit of service.Test results must be corre lated with clinical presentation and evaluated in the context of other laborator y and epidemiologic data. Test performance can be affected because the epidemiol ogy and clinical spectrum of infection caused by SARS-CoV-2 is not fully known. For example, the optimum types of specimens to collect and when during the cours e of infection these specimens are most likely to contain detectable viral RNA m ay not be known.This test has not been Food and Drug Administration (FDA) cleare d or approved and has been authorized by FDA under an Emergency Use Authorizatio n (EUA). The test is only authorized for the duration of the declaration that ci rcumstances exist justifying the authorization of emergency use of in vitro diag nostic tests for detection and/or diagnosis of SARS-CoV-2 under section 564(b) o f the Act, 21 U.S.C. section 360bbb-3(b)(1), unless the authorization is termina kaitlynn or revoked sooner. [facility] are certified under the C linical Laboratory Improvement Amendments of 1988 (CLIA), 42 U.S.C. section 263a , to perform high complexity tests.Testing performed by [facility] [id number] [place], [place] [id number] Director: Gorge Childs M.D.CLIA # [id number] [facility] LEFT THREE [id number] 10:44:00 [place] [address] Patient Name: MARLIY RENTERIA MR #: [id number] : 1950 Age/Sex: 69/M Req #: [id number] Adm Physician: Ordered by: ADDIE LAINEZ DO Report #: [id number] Location: ER Room/Bed: Procedure: [id number] DX/KNEE LEFT THREE VIEWS Exam Date: 08/19/19 Exam Time: 1004 REPORT STATUS: Signed EXAMINATION: KNEE LEFT THREE VIEWS INDICATION: Trauma COMPARISON : None FINDINGS: No acute fracture or dislocation. Alignment is a natomic. Mild tricompartmental degenerative changes. No substantial joint effu jamal. Mild atherosclerotic arterial calcifications. Surgical clips project ove r the medial posterior knee soft tissues. IMPRESSION: No acute osseous injury. Mild tricompartmental degenerative changes. Signed by: Aisha Quiroz MD on 08/19/2019 10:45 AM Dictated By: FLORIAN QUIROZ MD 44 Transcribed By: EARLINE on 08/19/191044 COPY TO: ADDIE LAINEZ DO SHOULDER LEFT COMPLETE 2019-08-19 10:41:00 [place] [address] Patient Name: MARILY RENTERIA MR #: [id number] : 1950 Age/Sex: 69/M Req #: [id number] [facility] Physician: Ordered by: ADDIE LAINEZ DO Report #: [id number] Location: ER Room/Bed: Procedure: [id number] DX/SHOULDER LEFT COMPLETE Exam Date: 08/19/19 Exam Time: 1004 REPORT STATUS: Signed EXAMINATION: SHOULDER LEFT COMPLETE INDICATION: Trauma COMPARIS ON: None FINDINGS: Internal and external rotation images of the l eft shoulder demonstrate no acute fracture or dislocation. Alignment is anatom ic. The soft tissues appear unremarkable. Mild degenerative changes of the gle nohumeral and acromioclavicular joints. Postoperative findings of prior CABG. The visualized portions of the left lung are clear. IMPRESSION: No acu te osseous injury of the left shoulder. Mild degenerative changes as above. Signed by: Florian Quiroz MD on 08/19/2019 10:42 AM Dictated By: AISHA QUIROZ MD 104 Transcribed B y: EARLINE on 08/19/191041 COPY TO: ADDIE LAINEZ,
[2020-03-11 16:01] LABS: BASOPHILS % 0.4 % (0.0-1.0); EOSINOPHILS % 0.1 % (0.0-6.0); HEMATOCRIT 36.6 % (38.2-49.6); HEMOGLOBIN 11.7 g/dL (14.0-18.0); LYMPHOCYTES # (AUTO) 0.7 (1.0-3.2); LYMPHOCYTES % 9.4 % (18.0-39.1); MEAN CORPUSCULAR HEMOGLOBIN 29.8 pg (28-32); MEAN CORPUSCULAR VOLUME 93.1 fL (81-99); MONOCYTES # (AUTO) 0.4 (0.2-0.8); MONOCYTES % 5.1 % (4.4-11.3); NEUTROPHILS # (AUTO) 6.1 (2.1-6.9); PLATELET COUNT 172 x10e3/uL (140-360); RED BLOOD COUNT 3.93 x10e6/uL (4.3-5.7)
--- NOTE | 2020-03-11 16:19 | Diagnostic Imaging Report ---
X-ray chest frontal view History: Chest pain Comparison: 03/05/2020 Findings: Lines and tubes: Not applicable Central airways: Unremarkable Cardiac silhouette: Desilhouetted heart borders. Status post median sternotomy and CABG. Mediastinal silhouettes: Desilhouetted Pleura: No pleural effusion, pneumothorax or thickening Diaphragms: Partially desilhouetted right medial hemidiaphragm. Lungs: Diffuse bilateral interstitial and airspace infiltrates significantly worsened compared with the previous exam. In the peripheral distribution of this finding is more consistent with an atypical infection/inflammation such as viral pneumonitis. Skeletal structures: No acute change Extrathoracic soft tissues: Unremarkable Impression: The findings of bilateral interstitial and airspace patchy disease with significant interval worsening supports a diagnosis of an infection such as atypical viral pneumonia. Covid pneumonia would be at the top of the differential diagnosis. Signed by: Jatinder Abbott MD on 03/11/2020 4:15 PM
[2020-03-11 16:24] LABS: ALBUMIN 2.2 g/dL (3.5-5.0); ALBUMIN/GLOBULIN RATIO 0.4 (0.8-2.0); ANION GAP 17.9 mmol/L (8-16); CALCIUM 8.4 mg/dL (8.4-10.2); CREATININE, SERUM 2.79 mg/dL (0.72-1.25); POTASSIUM 4.9 mmol/L (3.5-5.1)
[2020-03-11] MEDS ORDERED: DEXAMETHASONE SOD PHOS INJ 4 MG/ML VIAL IV ONE (18:00)
--- NOTE | 2020-03-11 18:45 | NUR ---
pt refusing to sign MOT/COT, pt lives in [place] and refusing to let his and family drive all the way to [facility], Clinical [facility] Builder notified and will talk to patient, Dr. Garnica also notified
--- NOTE | 2020-03-11 19:12 | NUR ---
attempted to give report, [facility] has transferred call to seasonal warehouse associate and receiving floor but no one answered
--- NOTE | 2020-03-11 19:26 | NUR ---
REPORT CALLED TO JESSICA MONTES AT [facility].
[2020-03-11 19:52] VITALS: BP 182/77
[2020-03-11 20:05] LABS: CLARITY,URINE SL CLOUDY (CLEAR); COLOR,URINE YELLOW (YELLOW)
[2020-03-11 20:06] LABS: BILIRUBIN,URINE NEGATIVE (NEGATIVE); KETONES,URINE NEGATIVE (NEGATIVE); LEUKOCYTE ESTERASE ,URINE NEGATIVE (NEGATIVE); NITRITE,URINE NEGATIVE (NEGATIVE); PROTEIN,URINE DIPSTICK >=300 (NEGATIVE); URINE UROBILINOGEN 0.2 mg/dL (0.2 - 1)
[2020-03-11 20:09] LABS: BACTERIA,URINE RARE /HPF; EPITHELIAL CELLS,URINE FEW /LPF
== END 2020-03-11 21:11 | disposition other institution (70) ==
LOC: ER 15:37
DX: U07.1 COVID-19 (principal); R06.02 Shortness of breath; I10 Essential (primary) hypertension; E11.9 Type 2 diabetes mellitus without complications; E78.5 Hyperlipidemia, unspecified; I25.10 Atherosclerotic heart disease of native coronary artery without angina pectoris; B19.10 Unspecified viral hepatitis B without hepatic coma; I25.2 Old myocardial infarction; Z95.1 Presence of aortocoronary bypass graft
CPT/HCPCS: 36415; 71045; 80053; 81001; 83605; 83880; 84484; 85025; 87040; 87400; 93005; 94660; 99284; J0692; J1100; J1940; U0002